=== PATIENT | female | born 1975 | race Two or more races ===

== ENCOUNTER 2021-04-01 18:27 | Emergency (ER) | payer OTHER, SELFPAY ==
[2021-04-01 18:29] VITALS: BP 90/57; PULSE 113; RESP 18; TEMP 36.6; O2SAT 95; BMI 30.2
--- NOTE | 2021-04-01 18:31 | ECG_ITS ---
Test Reason : DIZZINESS Blood Pressure : / mmHG Vent. Rate : 110 BPM Atrial Rate : 110 BPM P-R Int : 118 ms QRS Dur : 064 ms QT Int : 388 ms P-R-T Axes : 054 013 020 degrees QTc Int : 525 ms Sinus tachycardia Prolonged QT Abnormal ECG When compared with ECG of 01-JUL-2017 11:32, QT has lengthened Referred By: Sara Pope Electronically Signed By:Jay Treviño
[2021-04-01] MEDS: ondansetron HCL 4 MG/2 ML VIAL IVPUSH (18:45)
[2021-04-01 18:46] LABS: MANUAL DIFF FLAG NO
[2021-04-01] MEDS: 0.9 % Sodium Chloride 1,000 ML 999 ML IVCONT ×3 (18:47→19:30)
[2021-04-01 18:53] LABS: Glucose, Whole Blood 153 mg/dL (60-115)
[2021-04-01 18:57] LABS: Basophils Percent Auto 0.1 % (0-2); Eosinophils Absolute Auto 0.1 X10*3/uL (0.0-0.4); Eosinophils Percent Auto 0.7 % (0-4); Hematocrit 39.3 % (37-47); Hemoglobin 12.6 g/dl (12.0-16.0); Imm Gran Abs Auto 0.07 X10*3/uL (0.00-0.03); Imm Gran Pct Auto 0.6 % (0.0-0.4); Lymphocytes Absolute Auto 3.5 X10*3/uL (1.2-4.9); Lymphocytes Percent Auto 31.7 % (20-40); Mean Corpuscular HGB Conc 32.1 g/dl (31.0-35.0); Mean Corpuscular Volume 87.3 fL (80-98); Mean Platelet Volume 9.7 fL (9.4-12.3); Monocytes Absolute Auto 0.3 X10*3/uL (0.1-1.2); Monocytes Percent Auto 3.1 % (2-11); Neutrophils Percent Auto 63.8 % (45-73); Platelet Count 368 X10*3/uL (160-400); Red Cell Distribution Width 13.4 % (11.0-16.0); White Blood Count 10.9 X10*3/uL (4.8-10.8)
[2021-04-01 19:12] LABS: Ethanol < 10 mg/dL
[2021-04-01 19:14] LABS: Alanine Aminotransferase 10 U/L (0-31); Albumin Level 3.9 g/dL (3.5-5.0); Alkaline Phosphatase 90 U/L (39-117); Anion Gap 18 (12-20); Aspartate Amino Transferase 15 U/L (5-31); Bilirubin Direct < 0.2 mg/dL (0.0-0.5); Bilirubin Total 0.5 mg/dL (0.0-1.0); Blood Urea Nitrogen 11 mg/dL (9-16); Calcium 8.9 mg/dL (8.4-10.2); Carbon Dioxide 21 mmol/L (22-29); Chloride 104 mmol/L (96-108); Creatinine Clr Calc Pharmacy 54.6; Estimated Glomerular Filt Rate > 60; Glucose Random 183 mg/dL (60-115); Lipase 18 U/L (8-78); Potassium 3.5 mmol/L (3.3-5.1); Sodium 139 mmol/L (135-145); Total Protein 7.1 g/dL (6.5-8.0)
[2021-04-01 19:16] VITALS: BP 84/48; PULSE 107; RESP 18; O2SAT 100
[2021-04-01 19:20] LABS: Troponin-I High Sensitivity < 3.5 ng/L (<3.5-17.0)
--- NOTE | 2021-04-01 19:48 | ED.GENADULT ---
HPI - General Adult General Chief complaint: General Medical Stated complaint: hypotension, weakness, lethargy Time Seen by Provider: 04/01/21 18:31 Source: patient and EMS Mode of arrival: EMS Limitations: no limitations History of Present Illness HPI narrative: Patient comes emergency room complaining of a near syncopal episode today. Patient states she was feeling fine all day, took a hot shower, then patient started feeling weak, was able to sit on the toilet. Patient then stood up and started feeling dizzy and was able to lower herself to the ground. Patient denies loss of consciousness. EMS reports low blood pressure in the mid 80s. Patient states she has chronic low blood pressure and tachycardia. Related Data Previous Rx's Medication Instructions Recorded fluticasone propionate 50 2 spray INTRANASAL DAILY #16 g 01/11/21 mcg/actuation nasal spray,suspension zolpidem 10 mg tablet 10 mg PO BEDTIME PRN 30 Days #30 03/01/21 tab lorazepam 0.5 mg tablet 0.5 mg PO BID PRN 90 Days #180 tab 03/27/21 sertraline 25 mg tablet 25 mg PO DAILY #90 tab 03/27/21 Allergies Allergy/AdvReac Type Severity Reaction Status Date / Time milk [Milk] Allergy Intermediate THROAT Unverified 07/13/20 15:47 SWELLING latex [Latex] Allergy Mild RASH Unverified 07/13/20 15:47 oxycodone [From Percocet] Allergy Mild ANXIETY Unverified 07/13/20 15:47 acetaminophen [Percocet] Allergy Unknown Anxiety Verified 06/27/20 00:00 Motrin Allergy Unknown stomach Unverified 06/27/20 00:00 upset, nausea and vomiting naproxen [From NAPROSYN] Allergy Unknown NAUSEA & Unverified 07/13/20 15:47 VOMITING, rash ibuprofen [From Motrin] AdvReac Mild GASTRITIS Unverified 07/13/20 15:47 DAIRY PRODUCTS Allergy Intermediate THROAT Uncoded 07/13/20 15:47 CLOSING UP Latex Allergy Unknown Uncoded 06/27/20 00:00 Latex Gloves Allergy Unknown rash Uncoded 06/05/18 00:00 milk Allergy Unknown rash Uncoded 06/27/20 00:00 Review of Systems Review of Systems: Constitutional : No Weight loss, No Fever, No Chills, No Night Sweats, No Fatigue, No Malaise ENT/Mouth : No Hearing loss, No Ear Pain, No Nasal Congestion, No Sinus Pain, No Hoarseness, No sore throat, No Rhinorrhea, No Swallowing Difficulty Eyes: No Eye Pain, No Swelling, No Redness, No Foreign Body, No Discharge, No Vision Changes Cardiovascular : No Chest Pain, No SOB, No Dyspnea on Exertion, No Orthopnea, No Edema, No Palpitations Respiratory : No Cough, No Sputum, No Wheezing, No Smoke Exposure, No Dyspnea Gastrointestinal : No Nausea, No Vomiting, No Diarrhea, No Constipation, No abdominal Pain, No Hematochezia, No Melena Genitourinary : no irregular bleeding, No Dysuria, No Urinary Frequency, No Hematuria, No Urinary Incontinence, No Urgency, No Flank Pain, No Urinary Flow Changes, No Hesitancy Musculoskeletal : No joint pain, No Myalgias, No Joint Swelling Skin : No Skin Lesions, No rash Neuro : No Weakness, No Numbness, No Paresthesias, complaining of a near syncopal episode Psych : Complaining of feeling anxious, No Depression, No SI/HI/AH/VH, No Social Issues, Heme/Lymph: No Bruising, No Bleeding,No Lymphadenopathy Endocrine : No Polyuria, No Polydipsia, No Temperature Intolerance PMFSH Past Medical History Medical History Anxiety Cystocele Eosinophilic esophagitis GERD (gastroesophageal reflux disease) Gestational diabetes Iron deficiency anemia Osteomyelitis of right foot Osteoporosis Overactive bladder Renal calculi Right foot ulcer Spina bifida Uterine prolapse Vitamin D deficiency Social History Social History Alcohol intake: current Alcohol intake frequency: a few times a month Alcohol type: wine Patient Tobacco Use Status: Never used Tobacco Smoked in Last 30 Days: No Substance Use Type: Marijuana Substance Use Frequency: Monthly Last Used Substance: Weeks (ago) Advance Directives: No Advance Directives Information Provided: No Patient : No Physical Exam Vital Signs: Vital Signs: Last Vital Signs Temp 97.8 F 04/01/21 18:29 Pulse 108 H 04/01/21 21:15 Resp 17 04/01/21 21:06 BP 108/66 04/01/21 21:15 Pulse Ox 97 04/01/21 21:06 Body Mass Index 30.2 Appearance: Alert. Oriented X3. No acute distress. Eyes: Pupils equal, round and reactive to light. ENT: Pharynx normal. Neck: Normal inspection. Neck supple. No lymph nodes noted. No crepitus CVS: Normal heart rate and rhythm. Pulses normal. Normal S1 and S2 Respiratory: No respiratory distress. Breath sounds normal. No Wheezing. No rales Abdomen: Soft and nontender. No rigidity. No distention. good BS x4 Skin: Skin warm and dry. Normal skin color. Normal skin turgor. Extremities: No lower extremity edema. Mildly at trophic bilateral legs due to spina bifida Neuro: Oriented X 3. No motor deficit. No sensory deficit. Moving all extermities. No slurred speech. Course Course Course Narrative: Patient received 3 L of normal saline, patient's blood pressure now improved to 120 systolic. Patient's orthostatics were positive after 3 L of normal saline but patient was asymptomatic. Patient feels better, a bit nauseous but overall has no dizziness, no lightheaded sensation, no chest pain or shortness of breath. Patient likely had a vasovagal event from taking a hot shower when standing up quickly. Medical Decision Making Lab Data Result diagrams: 04/01/21 18:42 04/01/21 18:42 Labs: Lab Results 04/01/21 04/01/21 04/01/21 Range/Units 18:42 18:42 18:42 WBC 10.9 H (4.8-10.8) X10*3/uL RBC 4.50 (4.20-5.50) X10*6/uL Hgb 12.6 (12.0-16.0) g/dl Hct 39.3 (37-47) % MCV 87.3 (80-98) fL MCH 28.0 (27.0-33.0) pg MCHC 32.1 (31.0-35.0) g/dl RDW 13.4 (11.0-16.0) % Plt Count 368 (160-400) X10*3/uL MPV 9.7 (9.4-12.3) fL Immature Gran % (Auto) 0.6 H (0.0-0.4) % Neut % (Auto) 63.8 (45-73) % Lymph % (Auto) 31.7 (20-40) % [place] % (Auto) 3.1 (2-11) % Eos % (Auto) 0.7 (0-4) % Baso % (Auto) 0.1 (0-2) % Lymph # (Auto) 3.5 (1.2-4.9) X10*3/uL [place] # (Auto) 0.3 (0.1-1.2) X10*3/uL Eos # (Auto) 0.1 (0.0-0.4) X10*3/uL Baso # (Auto) 0.0 (0.0-0.2) X10*3/uL Abs Immat Gran (auto) 0.07 H (0.00-0.03) X10*3/uL Absolute Neuts (auto) 7.0 (2.0-8.3) X10*3/uL Absolute Nucleated RBC 0.000 (0.0-0.012) X10*3/uL Nucleated RBC % (auto) 0.0 (0.0-0.2) /100WBC Sodium Cancelled Potassium Cancelled Chloride Cancelled Carbon Dioxide Cancelled Anion Gap Cancelled BUN Cancelled Creatinine Cancelled Estim Creat Clear Calc Cancelled Estimated GFR Cancelled POC Glucose (60-115) mg/dL Random Glucose Cancelled Calcium Cancelled Total Bilirubin Cancelled Direct Bilirubin Cancelled AST Cancelled ALT Cancelled Alkaline Phosphatase Cancelled Troponin I High Sens < 3.5 (<3.5-17.0) ng/L Total Protein Cancelled Albumin Cancelled Lipase (8-78) U/L Urine Color Urine Appearance Urine pH (5.0-8.0) Ur Specific [place] (1.005-1.025) Urine Protein (NEG-TRACE) MG/DL Urine Glucose (UA) (NEG) MG/DL Urine Ketones (NEG) MG/DL Urine Blood (NEG) Urine Nitrite (NEG) Ur Leukocyte Esterase (NEG) Urine RBC (0) /HPF Urine WBC (0-4) /HPF Ur Squamous Epith Cells /LPF Urine Bacteria /LPF Urine Test (NEGATIVE) Urine Opiates Screen (Not Detect) Ur Barbiturates Screen (Not Detect) Ur Phencyclidine Scrn (Not Detect) Ur Amphetamines Screen (Not Detect) U Benzodiazepines Scrn (Not Detect) Urine Cocaine Screen (Not Detect) U Marijuana (THC) Screen (Not Detect) Ethyl Alcohol mg/dL 04/01/21 04/01/21 04/01/21 Range/Units 18:42 18:42 18:48 WBC (4.8-10.8) X10*3/uL RBC (4.20-5.50) X10*6/uL Hgb (12.0-16.0) g/dl Hct (37-47) % MCV (80-98) fL MCH (27.0-33.0) pg MCHC (31.0-35.0) g/dl RDW (11.0-16.0) % Plt Count (160-400) X10*3/uL MPV (9.4-12.3) fL Immature Gran % (Auto) (0.0-0.4) % Neut % (Auto) (45-73) % Lymph % (Auto) (20-40) % [place] % (Auto) (2-11) % Eos % (Auto) (0-4) % Baso % (Auto) (0-2) % Lymph # (Auto) (1.2-4.9) X10*3/uL [place] # (Auto) (0.1-1.2) X10*3/uL Eos # (Auto) (0.0-0.4) X10*3/uL Baso # (Auto) (0.0-0.2) X10*3/uL Abs Immat Gran (auto) (0.00-0.03) X10*3/uL Absolute Neuts (auto) (2.0-8.3) X10*3/uL Absolute Nucleated RBC (0.0-0.012) X10*3/uL Nucleated RBC % (auto) (0.0-0.2) /100WBC Sodium 139 Potassium 3.5 Chloride 104 Carbon Dioxide 21 L Anion Gap 18 BUN 11 Creatinine 0.97 Estim Creat Clear Calc 54.6 Estimated GFR > 60 POC Glucose 153 H (60-115) mg/dL Random Glucose 183 H Calcium 8.9 Total Bilirubin 0.5 Direct Bilirubin < 0.2 AST 15 ALT 10 Alkaline Phosphatase 90 Troponin I High Sens (<3.5-17.0) ng/L Total Protein 7.1 Albumin 3.9 Lipase 18 (8-78) U/L Urine Color Urine Appearance Urine pH (5.0-8.0) Ur Specific [place] (1.005-1.025) Urine Protein (NEG-TRACE) MG/DL Urine Glucose (UA) (NEG) MG/DL Urine Ketones (NEG) MG/DL Urine Blood (NEG) Urine Nitrite (NEG) Ur Leukocyte Esterase (NEG) Urine RBC (0) /HPF Urine WBC (0-4) /HPF Ur Squamous Epith Cells /LPF Urine Bacteria /LPF Urine Test (NEGATIVE) Urine Opiates Screen (Not Detect) Ur Barbiturates Screen (Not Detect) Ur Phencyclidine Scrn (Not Detect) Ur Amphetamines Screen (Not Detect) U Benzodiazepines Scrn (Not Detect) Urine Cocaine Screen (Not Detect) U Marijuana (THC) Screen (Not Detect) Ethyl Alcohol < 10 mg/dL 04/01/21 04/01/21 04/01/21 Range/Units 21:00 21:00 21:00 WBC (4.8-10.8) X10*3/uL RBC (4.20-5.50) X10*6/uL Hgb (12.0-16.0) g/dl Hct (37-47) % MCV (80-98) fL MCH (27.0-33.0) pg MCHC (31.0-35.0) g/dl RDW (11.0-16.0) % Plt Count (160-400) X10*3/uL MPV (9.4-12.3) fL Immature Gran % (Auto) (0.0-0.4) % Neut % (Auto) (45-73) % Lymph % (Auto) (20-40) % [place] % (Auto) (2-11) % Eos % (Auto) (0-4) % Baso % (Auto) (0-2) % Lymph # (Auto) (1.2-4.9) X10*3/uL [place] # (Auto) (0.1-1.2) X10*3/uL Eos # (Auto) (0.0-0.4) X10*3/uL Baso # (Auto) (0.0-0.2) X10*3/uL Abs Immat Gran (auto) (0.00-0.03) X10*3/uL Absolute Neuts (auto) (2.0-8.3) X10*3/uL Absolute Nucleated RBC (0.0-0.012) X10*3/uL Nucleated RBC % (auto) (0.0-0.2) /100WBC Sodium Potassium Chloride Carbon Dioxide Anion Gap BUN Creatinine Estim Creat Clear Calc Estimated GFR POC Glucose (60-115) mg/dL Random Glucose Calcium Total Bilirubin Direct Bilirubin AST ALT Alkaline Phosphatase Troponin I High Sens (<3.5-17.0) ng/L Total Protein Albumin Lipase (8-78) U/L Urine Color YELLOW Urine Appearance HAZY Urine pH 6.0 (5.0-8.0) Ur Specific [place] 1.010 (1.005-1.025) Urine Protein NEG (NEG-TRACE) MG/DL Urine Glucose (UA) NEG (NEG) MG/DL Urine Ketones NEG (NEG) MG/DL Urine Blood NEG (NEG) Urine Nitrite NEG (NEG) Ur Leukocyte Esterase TRACE H (NEG) Urine RBC 0 (0) /HPF Urine WBC 0-2 (0-4) /HPF Ur Squamous Epith Cells 2+ /LPF Urine Bacteria 2+ /LPF Urine Test NEGATIVE (NEGATIVE) Urine Opiates Screen Not Detected (Not Detect) Ur Barbiturates Screen Not Detected (Not Detect) Ur Phencyclidine Scrn Not Detected (Not Detect) Ur Amphetamines Screen Not Detected (Not Detect) U Benzodiazepines Scrn Not Detected (Not Detect) Urine Cocaine Screen Not Detected (Not Detect) U Marijuana (THC) Screen Not Detected (Not Detect) Ethyl Alcohol mg/dL ECG Data Attestation: I personally reviewed and interpreted this ECG as follows: (Sinus tachycardia, no ST segment depression or elevation, no T-wave inversion, prolonged QTC 525) Discharge Plan Discharge Clinical Impression: Vasovagal near-syncope Patient Disposition: Home, Self-Care Instructions: Near Syncope (ED) Additional Instructions: Please follow-up with your primary care physician tomorrow. If you have any worsening or new symptoms, please return to the emergency room or call 911 Prescriptions: No Action fluticasone propionate [Flonase Allergy Relief] 50 mcg/actuation spray,suspension 2 spray intranasal DAILY Qty: 16 RF: 3 zolpidem 10 mg tablet 10 mg PO BEDTIME PRN (Reason: insomnia) 30 Days Qty: 30 RF: 2 lorazepam 0.5 mg tablet 0.5 mg PO BID PRN (Reason: anxiety) 90 Days Qty: 180 RF: 1 sertraline 25 mg tablet 25 mg PO DAILY Qty: 90 RF: 3 Interventions: ED Discharge Assessment Last Done: 04/01/21 21:47 Discharge Date/Time: 04/01/21 21:47
--- NOTE | 2021-04-01 19:50 | PC.NURSE ---
per , pt to get 3 l ns. 2nd and 3rd L hung
[2021-04-01 21:06] VITALS: BP 118/85; PULSE 101; RESP 17; O2SAT 97
[2021-04-01 21:09] LABS: Glucose Urine UA NEG (NEG); Leukocyte Esterase Urine TRACE (NEG); Nitrite Urine NEG (NEG); UACC Culture Trigger YES; Urine Blood NEG (NEG); Urine Ketones NEG (NEG); Urine Protein NEG (NEG-TRACE)
[2021-04-01 21:11] LABS: Appearance Urine HAZY; Color Urine YELLOW; UPreg QC Valid YES; Urine Pregnancy NEGATIVE (NEGATIVE)
[2021-04-01 21:13] VITALS: BP 124/81; PULSE 99
[2021-04-01 21:14] VITALS: BP 128/81; PULSE 105
[2021-04-01 21:15] VITALS: BP 108/66; PULSE 108
[2021-04-01 21:23] LABS: WBC Urine 0-2 /HPF (0-4)
[2021-04-01 21:24] LABS: Bacteria Urine 2+ /LPF; RBC Urine 0 /HPF (0); Squamous Epithelial Cell Urine 2+ /LPF
[2021-04-01 21:32] LABS: Amphetamine Screen Urine Not Detected (Not Detect); Barbiturates, Urine Not Detected (Not Detect); Benzodiazepines Screen Urine Not Detected (Not Detect); Cannabinoid Screen Urine Not Detected (Not Detect); Cocaine Screen Urine Not Detected (Not Detect); Opiate Screen Urine Not Detected (Not Detect); Phencyclidine Screen Urine Not Detected (Not Detect)
[2021-04-01] MEDS: Prochlorperazine Edisylate 10 MG/2 ML VIAL IVPUSH (21:37)
== END 2021-04-01 21:47 | disposition home or self-care (01) ==
PROVIDERS: Emergency Provider Emergency Medicine
DX: R55 Syncope and collapse (principal); R73.9 Hyperglycemia, unspecified; N39.0 Urinary tract infection, site not specified; R00.0 Tachycardia, unspecified; D50.9 Iron deficiency anemia, unspecified; Q05.9 Spina bifida, unspecified; K21.9 Gastro-esophageal reflux disease without esophagitis; F12.90 Cannabis use, unspecified, uncomplicated; Z79.899 Other long term (current) drug therapy
CPT/HCPCS: 36415; 80048; 80076; 80307; 81001; 81003; 81025; 82077; 82947; 83690; 84484; 85025; 87086; 87088; 87186; 93005; 96361; 96374; 96375; 99284; 99285; J2405

== ENCOUNTER → 2021-10-02 09:43 | Outpatient (BNVA) | payer OTHER, SELFPAY | PROVIDERS: PCP Internal Medicine; Referring Provider Internal Medicine; Visit Provider Internal Medicine | DX: R00.2 Palpitations (principal); R00.0 Tachycardia, unspecified; R55 Syncope and collapse | CPT/HCPCS: 93005; 99202 ==

== ENCOUNTER 2021-10-31 08:43 | Outpatient (REF) | payer OTHER, SELFPAY ==
[2021-10-31 10:10] LABS: Binax Internal Control QC Valid; Binax Lot number: 9864; Binax Now Covid-19 Ag Negative (Negative)
== END 2021-10-31 08:44 | disposition home or self-care (01) ==
LOC: HO.LAB 08:43
PROVIDERS: Visit Provider Internal Medicine
DX: Z20.822 Contact with and (suspected) exposure to COVID-19 (principal)
CPT/HCPCS: 36415; C9803

== ENCOUNTER 2021-11-19 08:43 | Outpatient (REF) | payer OTHER, SELFPAY ==
[2021-11-19 10:18] LABS: Binax Internal Control QC Valid; Binax Now Covid-19 Ag Positive (Negative)
== END 2021-11-19 08:44 | disposition home or self-care (01) ==
LOC: HO.LAB 08:43
PROVIDERS: Visit Provider Internal Medicine
DX: Z20.822 Contact with and (suspected) exposure to COVID-19 (principal)
CPT/HCPCS: C9803

== ENCOUNTER 2022-05-12 08:21 | Emergency (ER) | payer OTHER, SELFPAY ==
--- NOTE | 2022-05-12 | ECG_ITS ---
Test Reason : chest tighness Blood Pressure : / mmHG Vent. Rate : 089 BPM Atrial Rate : 089 BPM P-R Int : 130 ms QRS Dur : 070 ms QT Int : 390 ms P-R-T Axes : 052 -08 021 degrees QTc Int : 474 ms Normal sinus rhythm Normal ECG When compared with ECG of 01-APR-2021 18:51, QT has shortened Referred By: Generic ED Physician Electronically Signed By:Jay Treviño
--- NOTE | ~2022-05-12 | XR_ITS ---
EXAMINATION: XR CHEST CLINICAL INFORMATION: Chest pain with palpitations COMPARISON: 02/11/2017 TECHNIQUE: Frontal view of the chest was obtained. FINDINGS: Mild right medial basilar opacity may represent a small area of atelectasis or infiltrate. The hilar structures do not appear pathologically enlarged. No failure. Cardiac silhouette within normal limits There is no effusion. XR/XR chest 1V IMPRESSION: Findings may suggest small right medial basilar atelectasis or infiltrate
[2022-05-12 08:26] VITALS: BP 150/110; PULSE 101; O2SAT 100
[2022-05-12 08:54] VITALS: BP 145/89; PULSE 98; RESP 18; TEMP 37; O2SAT 98; BMI 28.1
--- NOTE | 2022-05-12 12:32 | ED.GENADULT ---
HPI - General Adult General Chief complaint: Anxiety Stated complaint: CHEST DISCOMFORT W/ANXIETY SINCE 6AM PER EMS Time Seen by Provider: 05/12/22 12:15 Source: patient Mode of arrival: ambulatory Limitations: no limitations History of Present Illness HPI narrative: 46-year-old female history spina bifida and anxiety presents to ED for chest pain /palpitations. States around 5:00am in the bathroom and while go back to bed she felt some chest tightness and palpitation with headache. Patient states history of anxiety and this episode was slightly similar but different due to the constant palpitations. Patient denies any pleurisy, leg swelling, calf pain, coughing up blood, recent long travel, recent surgery, control pills or any recent trauma. He came to ED to evaluate to make sure nothing wrong with her. Related Data Previous Rx's Medication Instructions Recorded fluticasone propionate 50 2 spray intranasal DAILY #16 grams 09/27/21 mcg/actuation nasal spray,suspension (Flonase Allergy Relief) sertraline 25 mg tablet 25 mg PO DAILY #90 tabs 12/21/21 lorazepam 0.5 mg tablet 0.5 mg PO BID PRN anxiety 90 days 03/29/22 #180 tabs zolpidem 10 mg tablet 10 mg PO BEDTIME PRN insomnia 30 04/26/22 days #30 tabs amoxicillin 500 mg capsule 1,000 mg PO Q12H 5 days #20 caps 05/12/22 azithromycin 250 mg tablet See Rx Instructions PO .COMPLEX #6 05/12/22 tabs Allergies Allergy/AdvReac Type Severity Reaction Status Date / Time milk [Milk] Allergy Intermediate THROAT Verified 03/29/22 14:43 SWELLING latex [Latex] Allergy Mild RASH Verified 03/29/22 14:43 oxycodone [From Percocet] Allergy Mild ANXIETY Verified 03/29/22 14:43 naproxen [From NAPROSYN] Allergy Unknown NAUSEA & Verified 03/29/22 14:43 VOMITING, rash ibuprofen [From Motrin] AdvReac Mild GASTRITIS Verified 03/29/22 14:43 DAIRY PRODUCTS Allergy Intermediate THROAT Uncoded 03/29/22 14:43 CLOSING UP Review of Systems Review of Systems: resolved chest pain. palpitations Yes all other systems are reviewed and are negative FORMERLY [facility], [facility] Past Medical History Medical History (Updated 05/12/22 @ 14:25 by JOSSUE Salas) Anxiety Cystocele Eosinophilic esophagitis GERD (gastroesophageal reflux disease) Gestational diabetes Iron deficiency anemia Osteomyelitis of right foot Osteoporosis Overactive bladder Renal calculi Right foot ulcer Spina bifida Uterine prolapse Vitamin D deficiency Surgical History History of back surgery History of surgery History of tubal ligation Family History Family History Mother Diabetes High blood pressure Stroke Father High cholesterol Stroke Other Mental health disorder Social History Social History Housing: Apartment Alcohol intake: current Alcohol intake frequency: does not drink Alcohol type: wine Patient Tobacco Use Status: Never used Tobacco Smoked in Last 30 Days: No e-Cigarette/Vaping Use: Never Used Second Hand Smoke Exposure: No Use of substances other than those prescribed or required for medical reasons: No Substance Use Type: Marijuana Advance Directives: No Advance Directives Information Provided: Yes service: No Current occupational status: disabled Cognitive needs: No Hearing needs: No Vision needs: No Physical Exam ED Vital Signs: Vital Signs - 24 hr 05/12/22 08:54 05/12/22 12:49 Temperature 98.6 F 98.1 F Pulse Rate 98 78 Respiratory Rate 18 14 Blood Pressure 145/89 H 133/81 Pulse Oximetry 98 100 Oxygen Delivery Method Room Air Room Air BMI result Body Mass Index 28.1 Const General: cooperative, healthy appearing, comfortable, no acute distress, well developed, alert, awake and Physically active Orientation/consciousness: oriented to time and patient oriented x3 [facility] Head: Yes normal to inspection, Yes No palpable skull fracture present, Yes normocephalic and Yes atraumatic Eyes General: appearance normal, both eyes and all related structures Neck Neck: Yes normal visual inspection, Yes full ROM, Yes no lymphadenopathy, Yes no meningeal signs, Yes trachea midline, Yes supple, No anterior neck swelling and No tender Chest Chest palpation & inspection: normal inspection of the chest and normal palpation of entire chest wall Resp Effort & Inspection: normal respiratory effort and able to speak in complete sentences Auscultation: clear to auscultation bilaterally Cardio Jugular venous distension: no JVD Heart sounds: S1 normal heart sound present and S2 normal heart sound present GI Inspection: Yes normal to inspection and No abdominal wall ecchymosis Palpation (GI): Soft to palpation, not firm, nontender, no guarding and not rigid General: No CVA tenderness and Yes no CVA tenderness Back/Spine/Pelvis Back: no CVA tenderness, No CVA tenderness and No back tenderness Skin General skin exam: no rashes or lesions noted and elasticity normal Neuro General: oriented to time, patient oriented x3, gait normal, no meningeal signs and CN's II-XI intact bilaterally Extrem Other: Lower extremities negative for swelling, pain edema, or calf tenderness General: Yes normal to inspection and Yes full ROM Psych Appearance: grossly normal, well kempt and not disheveled Course Course Course Narrative: due to age will do cardiac evaluation. Due to patient staying palpitations although no chest pain and more comfortable most likely due to anxiety will do a D-dimer and thyroid level. EKG negative STEMI chest x-ray COVID swab ordered Reevaluation(s) Reevaluation #1: Patient's EKG negative STEMI. Troponin negative after having symptoms since 05:00 o'clock am . patient presently asymptomatic in the bed. D-dimer negative PERC score 0. Patient's heart score 0. chest x-ray shows possible right-sided infiltrate. Patient no having any URI symptoms but due to this reading will discharge with antiobitcs for atypical pnumonia. [facility] Time: 14:13 Medical Decision Making [facility] Narrative Medical decision making narrative: Atypical pneumonia. atypical chest pain Lab Data Result diagrams: 05/12/22 12:55 05/12/22 12:55 Labs: Lab Results 05/12/22 05/12/22 05/12/22 Range/Units 12:52 12:55 12:55 WBC 9.7 (4.8-10.8) X10*3/uL RBC 4.58 (4.20-5.50) X10*6/uL Hgb 13.2 (12.0-16.0) g/dl Hct 39.8 (37.0-47.0) % MCV 86.9 (80.0-98.0) fL MCH 28.8 (27.0-33.0) pg MCHC 33.2 (31.0-35.0) g/dl RDW 13.1 (11.0-16.0) % Plt Count 348 (160-400) X10*3/uL MPV 10.2 (9.4-12.3) fL Immature Gran % (Auto) 0.4 (0.0-0.4) % Neut % (Auto) 76.8 H (45-73) % Lymph % (Auto) 17.7 L (20-40) % [place] % (Auto) 4.2 (2-11) % Eos % (Auto) 0.6 (0-4) % Baso % (Auto) 0.3 (0-2) % Lymph # (Auto) 1.7 (1.2-4.9) X10*3/uL [place] # (Auto) 0.4 (0.1-1.2) X10*3/uL Eos # (Auto) 0.1 (0.0-0.4) X10*3/uL Baso # (Auto) 0.0 (0.0-0.2) X10*3/uL Abs Immat Gran (auto) 0.04 H (0.00-0.03) X10*3/uL Absolute Neuts (auto) 7.4 (2.0-8.3) x10*3/uL Absolute Nucleated RBC 0.000 (0.0-0.012) X10*3/uL Nucleated RBC % (auto) 0.0 (0.0-0.2) /100WBC PT (10.0-13.1) SEC INR (0.9-1.1) APTT (24.1-38.0) SEC D-Dimer High Sensitivty NG/ML Sodium 136 (135-145) mmol/L Potassium 4.4 D (3.3-5.1) mmol/L Chloride 106 (96-108) mmol/L Carbon Dioxide 20 L (22-29) mmol/L Anion Gap 14 (12-20) BUN 8 L (9-16) mg/dL Creatinine 0.79 (0.5-1.4) mg/dL Estim Creat Clear Calc 67.0 Estimated GFR > 60 Random Glucose 109 (60-115) mg/dL Calcium 8.8 (8.4-10.2) mg/dL Total Bilirubin 0.3 (0.0-1.0) mg/dL AST 38 H D (5-31) U/L ALT 24 (0-31) U/L Alkaline Phosphatase 84 (39-117) U/L Troponin I High Sens (<3.5-17.0) ng/L B-Natriuretic Peptide (<100) pg/mL Total Protein 7.5 (6.5-8.0) g/dL Albumin 4.2 (3.5-5.0) g/dL TSH 1.74 (0.32-4.0) uIU/mL COVID-19 (SAMARIA) Negative (Negative) COVID-19 Clin Com See Note 05/12/22 05/12/22 Range/Units 12:55 12:55 WBC (4.8-10.8) X10*3/uL RBC (4.20-5.50) X10*6/uL Hgb (12.0-16.0) g/dl Hct (37.0-47.0) % MCV (80.0-98.0) fL MCH (27.0-33.0) pg MCHC (31.0-35.0) g/dl RDW (11.0-16.0) % Plt Count (160-400) X10*3/uL MPV (9.4-12.3) fL Immature Gran % (Auto) (0.0-0.4) % Neut % (Auto) (45-73) % Lymph % (Auto) (20-40) % [place] % (Auto) (2-11) % Eos % (Auto) (0-4) % Baso % (Auto) (0-2) % Lymph # (Auto) (1.2-4.9) X10*3/uL [place] # (Auto) (0.1-1.2) X10*3/uL Eos # (Auto) (0.0-0.4) X10*3/uL Baso # (Auto) (0.0-0.2) X10*3/uL Abs Immat Gran (auto) (0.00-0.03) X10*3/uL Absolute Neuts (auto) (2.0-8.3) x10*3/uL Absolute Nucleated RBC (0.0-0.012) X10*3/uL Nucleated RBC % (auto) (0.0-0.2) /100WBC PT 12.3 (10.0-13.1) SEC INR 1.1 (0.9-1.1) APTT 36.7 (24.1-38.0) SEC D-Dimer High Sensitivty < 150 NG/ML Sodium (135-145) mmol/L Potassium (3.3-5.1) mmol/L Chloride (96-108) mmol/L Carbon Dioxide (22-29) mmol/L Anion Gap (12-20) BUN (9-16) mg/dL Creatinine (0.5-1.4) mg/dL Estim Creat Clear Calc Estimated GFR Random Glucose (60-115) mg/dL Calcium (8.4-10.2) mg/dL Total Bilirubin (0.0-1.0) mg/dL AST (5-31) U/L ALT (0-31) U/L Alkaline Phosphatase (39-117) U/L Troponin I High Sens < 3.5 (<3.5-17.0) ng/L B-Natriuretic Peptide < 10 (<100) pg/mL Total Protein (6.5-8.0) g/dL Albumin (3.5-5.0) g/dL TSH (0.32-4.0) uIU/mL COVID-19 (SAMARIA) (Negative) COVID-19 Clin Com ECG Data Interpretation: normal sinus rhythm. Ventricular rate 94. Pr interval 164. QRS 84 pr QTC 467. Negative STEMI Discharge Plan Discharge Clinical Impression: Chest pain, Atypical pneumonia Patient Disposition: Home, Self-Care Instructions: Chest Pain (ED), Community Acquired Pneumonia (ED) Additional Instructions: the EKG and blood work came back normal and negative for heart attack or risk of blood clot. Your thyroid level normal. COVID swab is negative. Chest x-ray shows possible right pneumonia and will be discharged with antibiotics. Please follow-up with your primary care provider. Return to the ED immediately for worsening chest pain, shortness of breath, leg swelling, calf pain, coughing up blood, tractable fever, chills, pain on inspiration, or any other concerning symptoms. Please follow up with PCP Prescriptions: New azithromycin 250 mg tablet See Rx Instructions .ROUTE .COMPLEX Qty: 6 0RF Rx Instructions: For 250 mg dose pack: take 500 mg today (day 1), then 250 mg for 4 days (days 2-5) amoxicillin 500 mg capsule 1,000 mg PO Q12H 5 Days Qty: 20 0RF No Action fluticasone propionate [Flonase Allergy Relief] 50 mcg/actuation spray,suspension 2 spray intranasal DAILY Qty: 16 5RF Rx Instructions: administer into each nostril sertraline 25 mg tablet 25 mg PO DAILY Qty: 90 3RF zolpidem 10 mg tablet 10 mg PO BEDTIME PRN (Reason: insomnia) 30 Days Qty: 30 3RF lorazepam 0.5 mg tablet 0.5 mg PO BID PRN (Reason: anxiety) 90 Days Qty: 180 1RF Stand Alone Forms: Work/School Release Interventions: ED Discharge Assessment Last Done: 05/12/22 14:54 Discharge Date/Time: 05/12/22 14:55 Print Language: [place]ian
[2022-05-12 12:49] VITALS: BP 133/81; PULSE 78; RESP 14; TEMP 36.7; O2SAT 100
[2022-05-12 12:59] LABS: MANUAL DIFF FLAG NO
[2022-05-12 13:15] LABS: COVID-19 Test Negative (Negative)
[2022-05-12 13:16] LABS: Basophils Percent Auto 0.3 % (0-2); Eosinophils Absolute Auto 0.1 X10*3/uL (0.0-0.4); Eosinophils Percent Auto 0.6 % (0-4); Hematocrit 39.8 % (37.0-47.0); Hemoglobin 13.2 g/dl (12.0-16.0); Imm Gran Abs Auto 0.04 X10*3/uL (0.00-0.03); Imm Gran Pct Auto 0.4 % (0.0-0.4); Lymphocytes Absolute Auto 1.7 X10*3/uL (1.2-4.9); Lymphocytes Percent Auto 17.7 % (20-40); Mean Corpuscular HGB Conc 33.2 g/dl (31.0-35.0); Mean Corpuscular Hemoglobin 28.8 pg (27.0-33.0); Mean Corpuscular Volume 86.9 fL (80.0-98.0); Mean Platelet Volume 10.2 fL (9.4-12.3); Monocytes Absolute Auto 0.4 X10*3/uL (0.1-1.2); Monocytes Percent Auto 4.2 % (2-11); Neutrophils Absolute Auto 7.4 x10*3/uL (2.0-8.3); Neutrophils Percent Auto 76.8 % (45-73); Platelet Count 348 X10*3/uL (160-400); Red Blood Count 4.58 X10*6/uL (4.20-5.50); Red Cell Distribution Width 13.1 % (11.0-16.0); White Blood Count 9.7 X10*3/uL (4.8-10.8)
[2022-05-12 13:19] LABS: B Type Natriuretic Peptide < 10 pg/mL (<100); Troponin-I High Sensitivity < 3.5 ng/L (<3.5-17.0)
[2022-05-12 13:26] LABS: INTERNATIONAL NORM RATIO 1.1 (0.9-1.1); Prothrombin Time 12.3 SEC (10.0-13.1)
[2022-05-12 13:29] LABS: Partial Thromboplastin Time 36.7 SEC (24.1-38.0)
[2022-05-12 13:31] LABS: D Dimer High Sensitivity < 150 NG/ML
[2022-05-12 13:43] LABS: TSH reflex Free T4 1.74 uIU/mL (0.32-4.0)
[2022-05-12 13:49] LABS: Alanine Aminotransferase 24 U/L (0-31); Albumin Level 4.2 g/dL (3.5-5.0); Alkaline Phosphatase 84 U/L (39-117); Anion Gap 14 (12-20); Aspartate Amino Transferase 38 U/L (5-31); Bilirubin Total 0.3 mg/dL (0.0-1.0); Blood Urea Nitrogen 8 mg/dL (9-16); Calcium 8.8 mg/dL (8.4-10.2); Carbon Dioxide 20 mmol/L (22-29); Chloride 106 mmol/L (96-108); Estimated Glomerular Filt Rate > 60; Glucose Random 109 mg/dL (60-115); Potassium 4.4 mmol/L (3.3-5.1); Sodium 136 mmol/L (135-145); Total Protein 7.5 g/dL (6.5-8.0)
[2022-05-12] MEDS: LORazepam 0.5 MG TABLET PO (14:54)
== END 2022-05-12 14:55 | disposition home or self-care (01) ==
PROVIDERS: Physician Assistant; Emergency Provider Emergency Medicine; PCP Internal Medicine
DX: J18.9 Pneumonia, unspecified organism (principal); R07.89 Other chest pain; R00.2 Palpitations; R06.02 Shortness of breath; Z20.822 Contact with and (suspected) exposure to COVID-19; Z79.899 Other long term (current) drug therapy
CPT/HCPCS: 36415; 71045; 80053; 83880; 84443; 84484; 85025; 85379; 85610; 85730; 87635; 93005; 96372; 99284

== ENCOUNTER → 2022-07-24 10:07 | Outpatient (REF) | payer OTHER, SELFPAY ==
--- NOTE | 2022-07-24 10:09 | ECG_ITS ---
Hook-up date: 2022-07-24 10:31:00 Duration: 25:51:00 Test Indications: PALPITATIONS Medications: [id number] QRS complexes 1 Ventricular ectopics which represent <1 % of total QRS comp. * Supraventricular ectopics which represent % of total QRS comp. * Paced QRS complexs which represent % of total QRS comp. VENTRICULAR ECTOPY 1 Isolated 0 Bigeminal Cycles 0 Couplets 0 Runs 0 Beats in Runs * Beats LONGEST at * BPM at :: -- * Beats FASTEST at * BPM at :: -- SUPRAVENTRICULAR ECTOPY * Isolated * Couplets * Runs * Beats in Runs * Beats LONGEST at * BPM at :: -- * Beats FASTEST at * BPM at :: -- HEART RATES 59 MIN at 06:42:31 2022-07-25 94 AVG 172 MAX at 12:20:19 2022-07-24 LONGEST RR 1.1520 secs at 06:40:41 2022-07-25 S-T LEVELS Channel 1 - 128 mm at 10:31:00 2022-07-24 - 128 mm at 10:31:00 2022-07-24 Channel 2 - 128 mm at 10:31:00 2022-07-24 - 128 mm at 10:31:00 2022-07-24 Channel 3 - 128 mm at 02:95:01 -- - 128 mm at 02:95:01 Underlying rhythm is sinus; Average ventricular rate 94/min; range 59-172/min; About 37% of the time, rate >100/min; sinus tachycardia; no other arrhythmias; No significant ectopy; Patient did not report any symptoms in the diary Referred By: Miguel Castillo Overread By: NAPOLEON DURHAM
--- NOTE | 2022-07-24 10:09 | CA_ITS ---
Transthoracic Echocardiogram Patient (Last, First, Middle): Lilibeth Hollis, Gender: Female Date of : 1975 Age: 46 Procedure Date: 07/24/2022 Procedure Type: Transthoracic Echocardiogram Location: OP Height: 144.78 cm Weight: 58.97 kg BSA: 1.50 m2 Heart Rate: 93 bpm BP: 130 / 80 mmHg Milling Supervisor: VON Padilla MD: Miguel Castillo MD Wire Hanger: Omkar Mcmahon MD Symptoms: R00.2 - Palpitations Study Quality: Adequate ECG Rhythm: Sinus Conclusions: - 1. Normal LV systolic function with impaired relaxation filling pattern 2. Normal cardiac valvular Doppler 3. Normal RV systolic pressure 4. No gross pericardial effusion Findings Left Ventricle Normal left ventricular size, thickness, and systolic function. The visually estimated ejection fraction is between 55-60%. Spectral Doppler is indicative of an impaired relaxation filling pattern. E/E prime ratio is between 8 and 15 consistent with indeterminate filling pressures. Right Ventricle Normal right ventricular cavity size and systolic function. Atria Both atria are normal in size. Interatrial shunt cannot be excluded. Aortic Valve The aortic valve structure and function is likely normal. There is no aortic valve stenosis. There is no aortic valve regurgitation. Mitral Valve Normal mitral valve structure and function. There is trace mitral valve regurgitation. There is no mitral valve stenosis. Pulmonic Valve The pulmonic valve was not well visualized. Tricuspid Valve Normal tricuspid valve structure. There is trace tricuspid valve regurgitation. The right ventricular systolic pressure is normal. The right ventricular systolic pressure is 17 mmHg. Normal right atrial pressure. There is no evidence of pulmonary hypertension. Great Vessels All visible segments of the aorta are normal in size. The pulmonary artery was not well visualized. Venous The inferior vena cava is normal in size and collapses greater than 50% with inspiration. Pericardium/Pleural There is no evidence of pericardial effusion. Prior Study Comparison No prior study available for comparison. Measurements 2D Linear Measurements IVSd: 1.02 0.6-0.9/0.6-1.0 cm LVIDd: 2.97 3.9-5.3/4.2-5.9 cm LVIDd Index: 1.98 2.4-3.2/2.2-3.1 cm/m2 LVIDs: 2.14 2.0-3.6 cm LVPWd: 1.14 0.7-1.1 cm LA Diam: 2.70 2.7-3.8/3.0-4.0 cm LAIDs Index: 1.80 1.5-2.3 cm/m2 LV Mass: 113.16 67-162/88-224 g LV Mass Index: 75.44 43-95/49-115 g/m2 LVOT Diam: 1.70 3.0+(-)1.3 cm 2D Systolic Function EF 4C: 57.50 >55% EF 2C: 58.60 >55% EF BiP: 59.00 >55% Mitral Valve MV Pk E: 0.79 MV PK A: 0.94 MV Decel Time: 241.00 E/A: 0.80 E'Lateral: 9.14 E'Medial: 5.66 E/E' Med: 14.00 E/E' Lat: 8.60 PHT: 70.00 MVA PHT: 3.14 Decel [place]: 3.28 Aortic Valve AoV Pk Johan: 1.03 AoV Mn Johan: 0.72 AoV VTI: 0.18 AoV Pk Grad: 4.00 Aov Mn Grad: 2.00 JARROD Cont.VTI: 1.92 LVOT LVOT Pk Johan: 0.84 LVOT Mn Johan: 0.60 LVOT VTI: 0.15 LVOT Pk Grad: 3.00 LVOT Mn Grad: 2.00 LVOT Diam: 1.70 LVOT Area: 2.27 Diastolic Function MV Pk E: 0.79 MV Pk A: 0.94 E/A: 0.80 E'Medial: 5.66 E/E' Med: 14.00 E' Laterial: 9.14 E/E' Lat: 8.60 Right Ventricle TAPSE (mm): 17.70 TVS' Johan: 10.70 Tricuspid Valve TR Pk Johan: 1.85 TR Pk Grad: 14.00 RA Press: 3.00 RVSP: 17.00 Great Vessels Aorta Sinus of Valsalva: 2.90 2.0-3.5 cm Ao Asc: 2.70 2.1-3.4 cm Pulmonary Valve PV Pk Johan: 0.80 Peak PV Grad: 3.00 Updated in Other Vendor System with Status of Final Omkar Mcmahon MD electronically signed on 07/24/2022 12:06:49 PM with status of Final
== END ==
LOC: HO.CARD 10:07
PROVIDERS: Visit Provider Internal Medicine
DX: R00.2 Palpitations (principal)
CPT/HCPCS: 93225; 93226; 93306

== ENCOUNTER 2022-08-07 20:48 | Emergency (ER) | payer OTHER, SELFPAY ==
--- NOTE | 2022-08-07 | ECG_ITS ---
Test Reason : CHEST PAIN Blood Pressure : / mmHG Vent. Rate : 103 BPM Atrial Rate : 103 BPM P-R Int : 112 ms QRS Dur : 068 ms QT Int : 364 ms P-R-T Axes : 041 006 020 degrees QTc Int : 476 ms Sinus tachycardia Otherwise normal ECG When compared with ECG of 12-MAY-2022 09:46, No significant change was found Heart rate has increased Referred By: Generic ED Physician Electronically Signed By:LA SHUKLA MD
[2022-08-07 20:54] VITALS: BMI 22.1
--- NOTE | 2022-08-07 20:58 | PC.NURSE ---
Addendum entered by Liss Light RN 08/07/22 21:02: Patient currently endorses 8/10 chest discomfort and pain. She states she called 911 today becauase it felt different, though unable to describe exactly what feels different. HR ST 1teens on telemetry upon arrival. Overall, patient is well-appearing. She denies SOB, dizziness, lightheadedness. Original Note: Patient presents endorsing chest pain and palpitations for one week. Hx anxiety and spinabifida. She has been having a workup with her PCP for tachycardia outpatient (has just completed wearing a holter monitor- results unknown). Patient reports that she does have anxiety and her heart races during an anxiety attack. Patient currently .
[2022-08-07 21:06] VITALS: BP 149/88; PULSE 109; RESP 15; TEMP 36.9; O2SAT 100
--- NOTE | 2022-08-07 21:11 | ED_ITS ---
HPI - Chest Pain General Chief Complaint: Chest Pain Stated Complaint: cp Time Seen by Provider: 08/07/22 21:11 Source: patient Mode of arrival: ambulatory Limitations: no limitations History of Present Illness HPI narrative: Patient history of anxiety taking lorazepam and Zoloft been more anxious her last 1 week ran out of her lorazepam 4 days ago since then complaining of chest pain and left arm pain very anxious unable to sleep patient had full workup including stress test Holter monitoring and echo 2 weeks ago negative Related Data Previous Rx's Medication Instructions Recorded fluticasone propionate 50 2 spray intranasal DAILY #16 grams 09/27/21 mcg/actuation nasal spray,suspension (Flonase Allergy Relief) sertraline 25 mg tablet 25 mg PO DAILY #90 tabs 12/21/21 lorazepam 0.5 mg tablet 0.5 mg PO BID PRN anxiety 90 days 03/29/22 #180 tabs zolpidem 10 mg tablet 10 mg PO BEDTIME PRN insomnia 30 04/26/22 days #30 tabs amoxicillin 500 mg capsule 1,000 mg PO Q12H 5 days #20 caps 05/12/22 azithromycin 250 mg tablet See Rx Instructions PO .COMPLEX #6 05/12/22 tabs Allergies Allergy/AdvReac Type Severity Reaction Status Date / Time milk [Milk] Allergy Intermediate THROAT Verified 03/29/22 14:43 SWELLING latex [Latex] Allergy Mild RASH Verified 03/29/22 14:43 oxycodone [From Percocet] Allergy Mild ANXIETY Verified 03/29/22 14:43 naproxen [From NAPROSYN] Allergy Unknown NAUSEA & Verified 03/29/22 14:43 VOMITING, rash ibuprofen [From Motrin] AdvReac Mild GASTRITIS Verified 03/29/22 14:43 DAIRY PRODUCTS Allergy Intermediate THROAT Uncoded 03/29/22 14:43 CLOSING UP Review of Systems Review of Systems: Yes all other systems are reviewed and are negative [facility] Past Medical History Medical History Anxiety Cystocele Eosinophilic esophagitis GERD (gastroesophageal reflux disease) Gestational diabetes Iron deficiency anemia Osteomyelitis of right foot Osteoporosis Overactive bladder Renal calculi Right foot ulcer Spina bifida Uterine prolapse Vitamin D deficiency Surgical History History of back surgery History of surgery History of tubal ligation Family History Family History Mother Diabetes High blood pressure Stroke Father High cholesterol Stroke Other Mental health disorder Social History Social History Housing: Apartment Alcohol intake: current Alcohol intake frequency: does not drink Alcohol type: wine Patient Tobacco Use Status: Never used Tobacco e-Cigarette/Vaping Use: Never Used Second Hand Smoke Exposure: No Substance Use Type: Marijuana Advance Directives: No Advance Directives Information Provided: No service: No Current occupational status: disabled Cognitive needs: No Hearing needs: No Vision needs: No Physical Exam Vital Signs: Vital Signs: Last Vital Signs Temp 98.5 F 08/07/22 21:06 Pulse 87 08/07/22 22:31 Resp 16 08/07/22 22:31 BP 143/86 H 08/07/22 22:31 Pulse Ox 97 08/07/22 22:31 O2 Del Method 08/07/22 22:31 BMI result Body Mass Index 22.1 Appearance: Alert. Oriented X3. No acute distress. Very anxious shaking Eyes: PERRLA, No Nystagmus ENT: Pharynx normal. Oral Mucosa moist Neck: Normal inspection. Neck supple. CVS: Normal heart rate and rhythm. Pulses normal. Respiratory: No respiratory distress. Equal air entry bilateral, no wheezing/rales/rhonchi Abdomen: Soft and nontender. Bowel sounds are present, no mass palpable, no CVA tenderness Skin: Skin warm and dry. Normal skin color. Normal skin turgor. Extremities: No lower extremity edema. No calf tenderness Neuro: Oriented X 3. No motor deficit. No sensory deficit.No cerebellar signs , cranial nerves II-XII intact MDM - Chest Pain MDM Narrative Medical decision making narrative: Patient history of anxiety got 180 tablets of lorazepam on 06/26 says that she finished the pills 4 days ago likely she taking over the prescribed doses patient advised to follow with PCP patient states that she lost the pills Lab Data Attestation: I reviewed the patient's lab results. Result diagrams: 08/07/22 21:06 08/07/22 21:06 Labs: Lab Results 08/07/22 08/07/22 08/07/22 Range/Units 21:06 21:06 21:06 WBC 9.3 (4.8-10.8) X10*3/uL RBC 4.34 (4.20-5.50) X10*6/uL Hgb 12.7 (12.0-16.0) g/dl Hct 38.1 (37.0-47.0) % MCV 87.8 (80.0-98.0) fL MCH 29.3 (27.0-33.0) pg MCHC 33.3 (31.0-35.0) g/dl RDW 13.4 (11.0-16.0) % Plt Count 278 (160-400) X10*3/uL MPV 10.1 (9.4-12.3) fL Immature Gran % (Auto) 0.4 (0.0-0.4) % Neut % (Auto) 64.0 (45-73) % Lymph % (Auto) 27.6 (20-40) % [place] % (Auto) 7.0 (2-11) % Eos % (Auto) 0.7 (0-4) % Baso % (Auto) 0.3 (0-2) % Lymph # (Auto) 2.6 (1.2-4.9) X10*3/uL [place] # (Auto) 0.7 (0.1-1.2) X10*3/uL Eos # (Auto) 0.1 (0.0-0.4) X10*3/uL Baso # (Auto) 0.0 (0.0-0.2) X10*3/uL Abs Immat Gran (auto) 0.04 H (0.00-0.03) X10*3/uL Absolute Neuts (auto) 6.0 (2.0-8.3) x10*3/uL Absolute Nucleated RBC 0.000 (0.0-0.012) X10*3/uL Nucleated RBC % (auto) 0.0 (0.0-0.2) /100WBC Sodium 139 (135-145) mmol/L Potassium 3.7 (3.3-5.1) mmol/L Chloride 108 (96-108) mmol/L Carbon Dioxide 21 L (22-29) mmol/L Anion Gap 14 (12-20) BUN 7 L (9-16) mg/dL Creatinine 0.70 (0.5-1.4) mg/dL Estim Creat Clear Calc 107.1 Estimated GFR > 60 Random Glucose 122 H (60-115) mg/dL Calcium 8.6 (8.4-10.2) mg/dL Total Bilirubin < 0.2 (0.0-1.0) mg/dL AST 14 D (5-31) U/L ALT 9 (0-31) U/L Alkaline Phosphatase 83 (39-117) U/L Troponin I High Sens < 3.5 (<3.5-17.0) ng/L Total Protein 7.0 (6.5-8.0) g/dL Albumin 4.0 (3.5-5.0) g/dL ECG Data ECG #1: Attestation: I personally reviewed and interpreted this ECG as follows: Interpretation: Sinus tachycardia heart rate 103 beats per minute normal intervals normal axis no acute ST-T changes no acute ischemia Discharge Plan Discharge Clinical Impression: Atypical chest pain, Anxiety Patient Disposition: Home, Self-Care Instructions: Noncardiac Chest Pain (ED), Anxiety (ED) Additional Instructions: Do not take extra doses of lorazepam Follow-up with your psychiatrist/PCP Prescriptions: No Action fluticasone propionate [Flonase Allergy Relief] 50 mcg/actuation spray,suspension 2 spray intranasal DAILY Qty: 16 5RF Rx Instructions: administer into each nostril sertraline 25 mg tablet 25 mg PO DAILY Qty: 90 3RF zolpidem 10 mg tablet 10 mg PO BEDTIME PRN (Reason: insomnia) 30 Days Qty: 30 3RF azithromycin 250 mg tablet See Rx Instructions .ROUTE .COMPLEX Qty: 6 0RF Rx Instructions: For 250 mg dose pack: take 500 mg today (day 1), then 250 mg for 4 days (days 2-5) amoxicillin 500 mg capsule 1,000 mg PO Q12H 5 Days Qty: 20 0RF lorazepam 0.5 mg tablet 0.5 mg PO BID PRN (Reason: anxiety) 90 Days Qty: 180 1RF
[2022-08-07 21:16] LABS: MANUAL DIFF FLAG NO
[2022-08-07 21:20] LABS: Basophils Percent Auto 0.3 % (0-2); Eosinophils Absolute Auto 0.1 X10*3/uL (0.0-0.4); Eosinophils Percent Auto 0.7 % (0-4); Hematocrit 38.1 % (37.0-47.0); Hemoglobin 12.7 g/dl (12.0-16.0); Imm Gran Abs Auto 0.04 X10*3/uL (0.00-0.03); Imm Gran Pct Auto 0.4 % (0.0-0.4); Lymphocytes Absolute Auto 2.6 X10*3/uL (1.2-4.9); Lymphocytes Percent Auto 27.6 % (20-40); Mean Corpuscular HGB Conc 33.3 g/dl (31.0-35.0); Mean Corpuscular Hemoglobin 29.3 pg (27.0-33.0); Mean Corpuscular Volume 87.8 fL (80.0-98.0); Mean Platelet Volume 10.1 fL (9.4-12.3); Monocytes Absolute Auto 0.7 X10*3/uL (0.1-1.2); Platelet Count 278 X10*3/uL (160-400); Red Blood Count 4.34 X10*6/uL (4.20-5.50); Red Cell Distribution Width 13.4 % (11.0-16.0); White Blood Count 9.3 X10*3/uL (4.8-10.8)
[2022-08-07] MEDS: LORazepam 1 MG TABLET PO (21:25)
[2022-08-07 21:45] LABS: Alanine Aminotransferase 9 U/L (0-31); Alkaline Phosphatase 83 U/L (39-117); Anion Gap 14 (12-20); Aspartate Amino Transferase 14 U/L (5-31); Bilirubin Total < 0.2 mg/dL (0.0-1.0); Blood Urea Nitrogen 7 mg/dL (9-16); Calcium 8.6 mg/dL (8.4-10.2); Carbon Dioxide 21 mmol/L (22-29); Chloride 108 mmol/L (96-108); Creatinine Clr Calc Pharmacy 107.1; Estimated Glomerular Filt Rate > 60; Glucose Random 122 mg/dL (60-115); Potassium 3.7 mmol/L (3.3-5.1); Sodium 139 mmol/L (135-145)
[2022-08-07 21:51] LABS: Troponin-I High Sensitivity < 3.5 ng/L (<3.5-17.0)
[2022-08-07 22:31] VITALS: BP 143/86; PULSE 87; RESP 16; O2SAT 97
== END 2022-08-07 23:09 | disposition home or self-care (01) ==
PROVIDERS: Emergency Provider Internal Medicine; PCP Internal Medicine
DX: R07.89 Other chest pain (principal); F41.1 Generalized anxiety disorder; F43.0 Acute stress reaction; Z79.899 Other long term (current) drug therapy
CPT/HCPCS: 36415; 80053; 84484; 85025; 93005; 99283

== ENCOUNTER 2022-09-09 12:51 | Outpatient (REF) | payer OTHER, SELFPAY ==
--- NOTE | ~2022-09-09 | MM_ITS ---
EXAMINATION: MM DIAGNOSTIC DIGITAL BREAST TOMOSYNTHESIS, BILATERAL US DIAGNOSTIC ULTRASOUND BREAST, LEFT CLINICAL INFORMATION: Due for yearly. Waxing and waning palpable area noted by patient anterior 12:00 left breast. Some correlation with menses. Small milky discharge with squeezing. Prior benign biopsy left breast 06/01/2018 (Fibrocystic changes including apocrine metaplasia, fibrosis, microcysts, moderate ductal hyperplasia and columnar cell hyperplasia without atypia). COMPARISON: Mammography: 12/30/2019, 12/18/2018, 06/01/2018, 05/19/2018 (baseline); ultrasound left breast 05/22/2018, 06/01/2018. TECHNIQUE: Digital breast tomosynthesis is performed in both the craniocaudal and mediolateral oblique views along with computer-aided detection (CAD). Synthesized 2D images are generated from the tomosynthesis. Ultrasound left breast is targeted to the upper and upper outer breast anterior to posterior. Grayscale imaging and color Doppler are performed without and with harmonics. Patient is able to point to area of concern at time of imaging. FINDINGS: There are scattered areas of fibroglandular density (ACR BI-RADS breast composition Category b). Parenchymal pattern is similar to prior exams. There is no significant mass or developing density or architectural abnormality. Again, biopsy clip marker is present central anterior 12:00 left breast with nodular asymmetry similar to prior studies. Tomography shows several incidental benign oil cysts in the mid to anterior upper outer left breast, largest measuring 0.9 x 0.7 cm. The axilla and skin contours are unremarkable. Ultrasound left breast demonstrates the oil cysts seen on mammography, largest 1:00 position 7 cm from nipple measuring under 1 cm. The area of palpable concern corresponds to the fibrocystic changes with clip marker previously sampled and similar on mammography to prior exams. There is no interval solid mass or dominant cyst or architectural abnormality. No skin thickening or edema tracking in soft tissue planes. Results are discussed with the patient at time of visit. MM/MM tomosynthesis diagnostic BI IMPRESSION: -No significant mammographic changes from prior studies. -Palpable concern on left corresponds to previously sampled fibrocystic changes with biopsy clip marker. There are also some small incidental oil cyst upper outer left breast. ASSESSMENT: BI-RADS 2: Benign RECOMMENDATION: Routine annual mammography screening. This patient's information was entered into a reminder system with a target due date for their next mammogram.
== END 2022-09-09 12:52 | disposition home or self-care (01) ==
LOC: HO.MAMMO 12:51
PROVIDERS: PCP Internal Medicine; Visit Provider Internal Medicine
DX: N63.25 Unspecified lump in the left breast, overlapping quadrants (principal)
CPT/HCPCS: 76642; 77062; 77066

== ENCOUNTER 2022-11-28 02:46 | Emergency (ER) | payer OTHER, SELFPAY ==
--- NOTE | ~2022-11-28 | XR_ITS ---
EXAMINATION: XR CHEST CLINICAL INFORMATION: Shortness of breath COMPARISON: 05/12/2022 TECHNIQUE: Frontal view of the chest was obtained. FINDINGS: The lungs are clear with no focal consolidation. No evidence of pneumothorax, pulmonary edema, or pleural effusions. Cardiac size is within normal limits. Prominent fat pad noted at the right cardiophrenic angle. No acute osseous findings. XR/XR chest 1V IMPRESSION: No acute cardiopulmonary findings.
[2022-11-28 03:06] VITALS: BP 160/100; PULSE 115; O2SAT 100
[2022-11-28 03:22] VITALS: BP 148/85; PULSE 94; RESP 16; TEMP 36.8; O2SAT 98; BMI 27.4
--- NOTE | 2022-11-28 03:25 | ECG_ITS ---
Test Reason : DIZZINESS Blood Pressure : / mmHG Vent. Rate : 087 BPM Atrial Rate : 087 BPM P-R Int : 128 ms QRS Dur : 068 ms QT Int : 408 ms P-R-T Axes : 000 187 163 degrees QTc Int : 490 ms Limb leads reversal Normal sinus rhythm Right superior axis deviation Prolonged QT Abnormal ECG When compared with ECG of 07-AUG-2022 21:05, Limb leads are reversed Referred By: Generic ED Physician Electronically Signed By:Jay Treviño
[2022-11-28 03:57] LABS: Basophils Percent Auto 0.2 % (0-2); Eosinophils Absolute Auto 0.2 X10*3/uL (0.0-0.4); Eosinophils Percent Auto 1.8 % (0-4); Hematocrit 38.7 % (37.0-47.0); Hemoglobin 12.8 g/dl (12.0-16.0); Imm Gran Abs Auto 0.02 X10*3/uL (0.00-0.03); Imm Gran Pct Auto 0.2 % (0.0-0.4); Lymphocytes Absolute Auto 2.3 X10*3/uL (1.2-4.9); Lymphocytes Percent Auto 26.7 % (20-40); MANUAL DIFF FLAG NO; Mean Corpuscular HGB Conc 33.1 g/dl (31.0-35.0); Mean Corpuscular Hemoglobin 29.2 pg (27.0-33.0); Mean Corpuscular Volume 88.4 fL (80.0-98.0); Monocytes Absolute Auto 0.7 X10*3/uL (0.1-1.2); Monocytes Percent Auto 7.7 % (2-11); Neutrophils Absolute Auto 5.5 x10*3/uL (2.0-8.3); Neutrophils Percent Auto 63.4 % (45-73); Platelet Count 303 X10*3/uL (160-400); Red Blood Count 4.38 X10*6/uL (4.20-5.50); Red Cell Distribution Width 13.2 % (11.0-16.0); White Blood Count 8.7 X10*3/uL (4.8-10.8)
[2022-11-28 04:10] LABS: Anion Gap 14 (12-20); Blood Urea Nitrogen 9 mg/dL (9-16); Calcium 8.9 mg/dL (8.4-10.2); Carbon Dioxide 26 mmol/L (22-29); Chloride 103 mmol/L (96-108); Creatinine Clr Calc Pharmacy 68.2; Estimated Glomerular Filt Rate > 60; Glucose Random 109 mg/dL (60-115); Potassium 3.7 mmol/L (3.3-5.1); Sodium 139 mmol/L (135-145)
[2022-11-28 04:27] LABS: Troponin-I High Sensitivity < 3.5 ng/L (<3.5-17.0)
[2022-11-28 04:35] LABS: Influenza A PCR NEGATIVE (Negative); Influenza B PCR NEGATIVE (Negative); Resp Syncy Virus RNA Qual PCR NEGATIVE (Negative); SARS COV2 PCR INHOUSE NEGATIVE (Negative)
[2022-11-28 05:47] VITALS: BP 145/79; PULSE 89; RESP 16; TEMP 36.7; O2SAT 98
== END 2022-11-28 08:48 | disposition left against medical advice (07) ==
PROVIDERS: Emergency Provider Emergency Medicine
DX: R42 Dizziness and giddiness (principal); R00.2 Palpitations; R06.02 Shortness of breath; Z20.822 Contact with and (suspected) exposure to COVID-19; Z20.828 Contact with and (suspected) exposure to other viral communicable diseases
CPT/HCPCS: 0241U; 36415; 71045; 80048; 84484; 85025; 93005; 99283

== ENCOUNTER 2023-05-06 19:08 | Emergency (ER) | payer OTHER, SELFPAY ==
--- NOTE | ~2023-05-06 | XR_ITS ---
EXAMINATION: XR ANKLE, LEFT CLINICAL INFORMATION: Left ankle pain. COMPARISON: None available. TECHNIQUE: AP, lateral, and mortise views of the left ankle. FINDINGS: Old healed fracture is present at the included distal shaft of the left fibula. Postsurgical changes are noted within the distal metaphysis of the left tibia. Mild periarticular osteopenia is noted at the left ankle and the visualized included part of the left foot. XR/XR ankle LT min 3V IMPRESSION: Marked periarticular osteopenia at the left ankle without any radiographic evidence of displaced fracture, subluxation or dislocation.
--- NOTE | ~2023-05-06 | XR_ITS ---
EXAMINATION: XR HIP, LEFT CLINICAL INFORMATION: Left-sided hip pain. Status post repair of spina bifida COMPARISON: CT abdomen pelvis 09/25/2019 TECHNIQUE: Two views of the left hip. FINDINGS: Again seen is some flattening of the right humeral head and some remodeling of the acetabulum. The left hip appears unremarkable without evidence of fracture or dislocation. Soft tissues are unremarkable. XR/XR hip LT min 2V IMPRESSION: No acute finding. Chronic changes described above.
--- NOTE | 2023-05-06 19:27 | ED.GENADULT ---
HPI - General Adult General Chief complaint: Fall Stated complaint: Fall/unable to feel leg Time Seen by Provider: 05/07/23 03:02 Source: patient Mode of arrival: ambulatory Limitations: no limitations History of Present Illness HPI narrative: Patient with history of spina bifida apparently had mechanical fall a week ago since then noticed pain in the left side of the thigh with numbness feeling off and on with muscle spasm of left side, also has pain in the left ankle with slight swelling patient wears ankle brace no back pain no other injuries Related Data Home Medications Medication Instructions Recorded Confirmed mirabegron 25 mg tablet,extended 25 mg PO DAILY 09/02/22 09/02/22 release 24 hr (Myrbetriq) Previous Rx's Medication Instructions Recorded sertraline 25 mg tablet 25 mg PO DAILY #90 tabs 12/21/21 sennosides 8.6 mg-docusate sodium 2 tab-cap PO BEDTIME #60 tabs 09/02/22 50 mg tablet (Senna-S) lorazepam 0.5 mg tablet 0.5 mg PO BID PRN anxiety 90 days 03/06/23 #180 tabs fluticasone propionate 50 2 spray intranasal DAILY #16 grams 03/17/23 mcg/actuation nasal spray,suspension (Flonase Allergy Relief) zolpidem 10 mg tablet 10 mg PO BEDTIME PRN insomnia 30 03/17/23 days #30 tabs cyclobenzaprine 10 mg tablet 10 mg PO TID PRN muscle spasm #20 05/07/23 tabs Allergies Allergy/AdvReac Type Severity Reaction Status Date / Time milk [Milk] Allergy Intermediate THROAT Verified 09/02/22 17:44 SWELLING latex [Latex] Allergy Mild RASH Verified 09/02/22 17:44 oxycodone [From Percocet] Allergy Mild ANXIETY Verified 09/02/22 17:44 naproxen [From NAPROSYN] Allergy Unknown NAUSEA & Verified 09/02/22 17:44 VOMITING, rash ibuprofen [From Motrin] AdvReac Mild GASTRITIS Verified 09/02/22 17:44 DAIRY PRODUCTS Allergy Intermediate THROAT Uncoded 09/02/22 17:44 CLOSING UP Review of Systems Review of Systems: Yes all other systems are reviewed and are negative PMFSH Past Medical History Medical History Anxiety Cystocele Eosinophilic esophagitis GERD (gastroesophageal reflux disease) Gestational diabetes Iron deficiency anemia Osteomyelitis of right foot Osteoporosis Overactive bladder Renal calculi Right foot ulcer Spina bifida Uterine prolapse Vitamin D deficiency Surgical History History of back surgery History of surgery History of tubal ligation Family History Family History Mother Diabetes High blood pressure Stroke Father High cholesterol Stroke Maternal Grandmother Myocardial infarct Paternal Uncle Brain cancer Colon cancer Other Mental health disorder Social History Social History Housing: Apartment Alcohol intake: current Alcohol intake frequency: a few times a month Alcohol type: wine Patient Tobacco Use Status: Never used Tobacco Smoked in Last 30 Days: No e-Cigarette/Vaping Use: Never Used Second Hand Smoke Exposure: No Use of substances other than those prescribed or required for medical reasons: No Substance Use Type: Marijuana Advance Directives: No Advance Directives Information Provided: No Patient : No service: No Current occupational status: disabled Cognitive needs: No Hearing needs: No Vision needs: No Physical Exam ED Vital Signs: Vital Signs - 24 hr 05/06/23 19:50 05/07/23 02:35 05/07/23 04:06 Temperature 96.7 F L 98.3 F 98.1 F Pulse Rate 99 90 84 Respiratory Rate 14 12 2 L Blood Pressure 173/96 H 158/96 H Pulse Oximetry 97 98 98 Oxygen Delivery Method Room Air BMI result Body Mass Index 27.0 Appearance: Alert. Oriented X3. No acute distress. ENT: Pharynx normal. Oral Mucosa moist Neck: Normal inspection. Neck supple. CVS: Normal heart rate and rhythm. Pulses normal. Respiratory: No respiratory distress. Equal air entry bilateral, Abdomen: Soft and nontender. Bowel sounds are present, Skin: Skin warm and dry. Normal skin color. Normal skin turgor. Extremities: No lower extremity edema. No calf tenderness pelvis stable good hip movements slight swelling of the left ankle no spinal tenderness Neuro: Oriented X 3. Residual weakness deformity of spina bifid the left leg with minimal movements of the left ankle patchy sensation loss as in the past tenderness at lateral cutaneous nerve area with muscle spasm Course Course Course Narrative: This is an RME: Additional HPI, ROS, PE not included below will be deferred to primary provider. 47 year old female hx of spina bifida presents w/ LLE pain s/p fall about a week ago. worse w/ walking. Reports abnormal sensation to LLE reports at baseline has decreased sensation to LLE 97% on RA, Pulse 99 T: 96.7 R: 14 Medications Administered Discontinued Medications Generic Name Dose Route Start Last Admin Trade Name Freq PRN Reason Stop Dose Admin Cyclobenzaprine HCl 10 mg 05/07/23 03:09 05/07/23 03:21 Cyclobenzaprine Hcl 10 Mg Tablet PO 05/07/23 03:10 10 mg ONCE ONE Administration Medical Decision Making Medical Decision Making [facility] Narrative: Patient s/pmechanical fall with muscles fell on left leg x-ray negative for fracture likely has left cutaneous nerve inflammation with muscle spasm discharge patient home on Flexeril Discharge Plan Discharge Clinical Impression: Muscle spasm of left lower extremity Patient Disposition: Home, Self-Care Instructions: Muscle Spasm (ED) Additional Instructions: Likely you have muscle spasm of left leg Take Flexeril for muscle relaxation as prescribed Follow-up with PCP if any concerns Prescriptions: New cyclobenzaprine 10 mg tablet 10 mg PO TID PRN (Reason: muscle spasm) Qty: 20 0RF No Action sertraline 25 mg tablet 25 mg PO DAILY Qty: 90 3RF lorazepam 0.5 mg tablet 0.5 mg PO BID PRN (Reason: anxiety) 90 Days Qty: 180 1RF zolpidem 10 mg tablet 10 mg PO BEDTIME PRN (Reason: insomnia) 30 Days Qty: 30 3RF fluticasone propionate [Flonase Allergy Relief] 50 mcg/actuation spray,suspension 2 spray intranasal DAILY Qty: 16 5RF Rx Instructions: administer into each nostril Myrbetriq 25 mg tablet extended release 24 hr 25 mg PO DAILY sennosides-docusate sodium [Senna-S] 8.6-50 mg tablet 2 tab-cap PO BEDTIME Qty: 60 0RF
[2023-05-06 19:50] VITALS: PULSE 99; RESP 14; TEMP 35.9; O2SAT 97; BMI 27.0
[2023-05-07 02:35] VITALS: BP 173/96; PULSE 90; RESP 12; TEMP 36.8; O2SAT 98
[2023-05-07] MEDS: Cyclobenzaprine HCl 10 MG TABLET PO (03:21)
[2023-05-07 04:06] VITALS: BP 158/96; PULSE 84; RESP 2; TEMP 36.7; O2SAT 98
== END 2023-05-07 04:32 | disposition home or self-care (01) ==
PROVIDERS: Emergency Provider Internal Medicine; PCP Internal Medicine
DX: M62.838 Other muscle spasm (principal); M79.652 Pain in left thigh; M25.572 Pain in left ankle and joints of left foot; Q05.9 Spina bifida, unspecified; Z79.899 Other long term (current) drug therapy
CPT/HCPCS: 73502; 73610; 99283; 99284

== ENCOUNTER 2023-05-31 18:53 | Emergency (ER) | payer OTHER, SELFPAY ==
--- NOTE | ~2023-05-31 | CT_ITS ---
EXAMINATION: CT ABDOMEN AND PELVIS WITH CONTRAST CLINICAL INFORMATION: Left lower quadrant abdominal pain status post bladder lift 1 week ago COMPARISON: 09/25/2019 TECHNIQUE: Multidetector volumetric images were obtained from the superior aspect of the liver through the pubic symphysis following administration 85 mL of Omnipaque 350 intravenous contrast. Sagittal and coronal reformatted images were obtained on the technologist's workstation. Oral contrast: No This CT examination was performed using dose optimization techniques as appropriate, variously including the following: *Automated exposure control *Adjustment of mA and/or kV according to patient size (this includes techniques or standardized protocols for targeted exams where dose is matched to indication/reason for exam; i.e. extremities or head) *Use of iterative reconstruction technique DLP: 419 mGy-cm FINDINGS: LUNG BASES: The visualized lung bases are unremarkable. LIVER, GALLBLADDER, AND BILIARY TREE: The liver is normal in size, shape, and attenuation. No focal hepatic lesion or biliary ductal dilatation is present. The gallbladder is unremarkable with no evidence of radiopaque gallstones, gallbladder wall thickening, or obvious pericholecystic inflammatory changes. PANCREAS: Unremarkable. SPLEEN: Unremarkable. ADRENAL GLANDS: Unremarkable. KIDNEYS AND URETERS: The kidneys are normal in size, shape, and attenuation. No hydronephrosis or hydroureter. There aren't couple nonobstructive calculi in the lower pole left kidney, punctate in size and 2 mm within the lower and mid poles, respectively. No perinephric stranding. BLADDER: Bladder is moderately distended with a volume of 700 mL. There is a 'horseshoe' shaped peripherally hyperemic fluid surrounding the proximal urethra measuring up to 1.7 x 1.5 x 1.6 cm having the appearance of a urethral diverticulum, although possibly postoperative periurethral bulking agent was used. Associated hyperemia surrounds this structure. GASTROINTESTINAL TRACT: The small and large bowel are unremarkable. The appendix is unremarkable. ABDOMINAL WALL: There is skin thickening and underlying fat stranding and increased density of the fat posterior to the bilateral ischia compatible with decubitus changes. LYMPH NODES: Normal. VASCULAR: Unremarkable. PELVIC VISCERA: Uterus and adnexa unremarkable. 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 Postoperative changes may be complicating this appearance. Appearance unchanged from prior. CT/CT abdomen pelvis w IV con IMPRESSION: There is a 'horseshoe' shaped peripherally hyperemic fluid surrounding the proximal urethra measuring up to 1.7 x 1.5 x 1.6 cm having the appearance of a urethral diverticulum, although possibly postoperative periurethral bulking agent was used. The hyperemia suggests inflammation or infection. * Moderate bladder distention with a volume of 700 mL. 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 * Decubitus changes posterior to the bilateral ischia. Recommend direct visual inspection This result was discussed with Nilam MARCUM at 06/01/2023 1:28 AM and it was ascertained that the content and urgency of the report was understood at the time of direct communication.
--- NOTE | 2023-05-31 19:07 | ED.ABDPAIN ---
HPI - Abdominal Pain General Chief Complaint: Abdominal Pain Stated Complaint: ? uti back pain Time Seen by Provider: 05/31/23 23:04 Source: patient and family Mode of arrival: ambulatory Limitations: no limitations History of Present Illness HPI narrative: 47yoF with a PMHx of Hysterectomy few years ago who is now status post bladder prolapse repair approximately 1 weeks ago performed at [facility] by Aster Borges who is presenting to the ER with complaints of dysuria with lower back pain which is radiating to her lower suprapubic abdomen/left lower quadrant since yesterday worse today. She reports increased urinary frequency and urgency. She has been taking [id number] medication with no symptomatic relief. She called her surgeon at [facility] and she has a follow-up appointment coming up this week although she did not feel like she could wait therefore she came here for further evaluation treatment due to the pain. She reports subjective fevers and chills with nausea. She denies any dizziness, headaches, neck pain, chest pain or shortness of breath, congestion or cough, abnormal vaginal discharge, diarrhea constipation, hematuria, recent falls or trauma or recent travel, thoughts of STDs or any other symptoms complaints or concerns at this time. MD elicited complaint: abdominal pain Pertinent past history: other ( recent bladder prolapse surgery) Onset (ago): day(s) (2) Pain Consistency: constant Location: LLQ and suprapubic Severity: moderate Quality: cramping and aching Radiation: back Exacerbating factors: nothing Relieving factors: nothing Associated symptoms: nausea, fever, chills and dysuria Related Data Home Medications Medication Instructions Recorded Confirmed mirabegron 25 mg tablet,extended 25 mg PO DAILY 09/02/22 09/02/22 release 24 hr (Myrbetriq) Previous Rx's Medication Instructions Recorded sertraline 25 mg tablet 25 mg PO DAILY #90 tabs 12/21/21 sennosides 8.6 mg-docusate sodium 2 tab-cap PO BEDTIME #60 tabs 09/02/22 50 mg tablet (Senna-S) lorazepam 0.5 mg tablet 0.5 mg PO BID PRN anxiety 90 days 03/06/23 #180 tabs fluticasone propionate 50 2 spray intranasal DAILY #16 grams 03/17/23 mcg/actuation nasal spray,suspension (Flonase Allergy Relief) zolpidem 10 mg tablet 10 mg PO BEDTIME PRN insomnia 30 03/17/23 days #30 tabs cyclobenzaprine 10 mg tablet 10 mg PO TID PRN muscle spasm #20 05/07/23 tabs cefuroxime axetil 250 mg tablet 250 mg PO BID 7 days #14 tabs 06/01/23 tramadol 50 mg tablet 50 mg PO Q6H PRN pain #20 tabs 06/01/23 Allergies Allergy/AdvReac Type Severity Reaction Status Date / Time milk [Milk] Allergy Intermediate THROAT Verified 05/31/23 19:16 SWELLING latex [Latex] Allergy Mild RASH Verified 05/31/23 19:16 oxycodone [From Percocet] Allergy Mild ANXIETY Verified 05/31/23 19:16 naproxen [From NAPROSYN] Allergy Unknown NAUSEA & Verified 05/31/23 19:16 VOMITING, rash ibuprofen [From Motrin] AdvReac Mild GASTRITIS Verified 05/31/23 19:16 DAIRY PRODUCTS Allergy Intermediate THROAT Uncoded 05/31/23 19:16 CLOSING UP Review of Systems Review of Systems Constitutional : No Weight loss, No Fever, No Chills, No Night Sweats, No Fatigue, No Malaise ENT/Mouth : No Hearing loss, No Ear Pain, No Nasal Congestion, No Sinus Pain, No Hoarseness, No sore throat, No Rhinorrhea, No Swallowing Difficulty Eyes: No Eye Pain, No Swelling, No Redness, No Foreign Body, No Discharge, No Vision Changes Cardiovascular : No Chest Pain, No SOB, No Dyspnea on Exertion, No Orthopnea, No Edema, No Palpitations Respiratory : No Cough, No Sputum, No Wheezing, No Smoke Exposure, No Dyspnea Gastrointestinal : + Nausea, + abdominal pain, No Vomiting, No Diarrhea, No Constipation, No Hematochezia, No Melena Genitourinary : no irregular bleeding, No Dysuria, No Urinary Frequency, No Hematuria, No Urinary Incontinence, No Urgency, No Flank Pain, No Urinary Flow Changes, No Hesitancy Musculoskeletal : No joint pain, No Myalgias, No Joint Swelling Skin : No Skin Lesions, No rash Neuro : No Weakness, No Numbness, No Paresthesias, No Loss of Consciousness, No Dizziness, No Headache Psych : No Anxiety/Panic, No Depression, No SI/HI/AH/VH, No Social Issues, Heme/Lymph: No Bruising, No Bleeding,No Lymphadenopathy Endocrine : No Polyuria, No Polydipsia, No Temperature Intolerance Yes all other systems are reviewed and are negative [facility] Past Medical History Attestation statement: The following information was validated with the patient. Source: old records reviewed, obtained from family and nursing notes reviewed Medical History Anxiety Cystocele Eosinophilic esophagitis GERD (gastroesophageal reflux disease) Gestational diabetes Iron deficiency anemia Osteomyelitis of right foot Osteoporosis Overactive bladder Renal calculi Right foot ulcer Spina bifida Uterine prolapse Vitamin D deficiency Surgical History History of back surgery History of surgery History of tubal ligation Family History Family History Mother Diabetes High blood pressure Stroke Father High cholesterol Stroke Maternal Grandmother Myocardial infarct Paternal Uncle Brain cancer Colon cancer Other Mental health disorder Social History Social History Housing: Apartment Alcohol intake: current Alcohol intake frequency: a few times a month Alcohol type: wine Patient Tobacco Use Status: Never used Tobacco e-Cigarette/Vaping Use: Never Used Second Hand Smoke Exposure: No Substance Use Type: Marijuana Advance Directives: No Advance Directives Information Provided: Yes service: No Current occupational status: disabled Cognitive needs: No Hearing needs: No Vision needs: No Physical Exam ED Vital Signs: Vital Signs - 24 hr 05/31/23 19:16 05/31/23 22:07 Temperature 98.1 F 99.3 F Pulse Rate 99 91 Respiratory Rate 18 22 H Blood Pressure 166/88 H 150/80 H Pulse Oximetry 99 98 Oxygen Delivery Method Room Air Room Air BMI result Body Mass Index 27.7 Vital signs have been reviewed and all within normal limits Appearance: Alert. Oriented X3. No acute distress. Head: Normal external exam. Normocephalic. Eyes: PERRLA. EOMI. Conjunctiva and sclera normal. Eyelids normal. ENT: Pharynx normal. Uvula midline. Moist mucous membranes. No trismus noted. No drooling noted. No muffled voice noted. Neck: Normal inspection. Neck supple. FROM. No adenopathy. No meningeal signs. CVS: Normal heart rate and rhythm. Heart sound normal. No murmurs noted. Pulses normal throughout. Respiratory: No respiratory distress. Painless inspiration. Breath sounds normal. No wheezes/rales/rhonchi noted. Chest nontender. No accessory muscle usage noted or decreased air movement noted. Abdomen: Soft and Moderate TTP to suprapubic and LLQ with guarding. Nondistended. No rigidity. Bowel sounds normal in all 4 quadrants. No distention noted. No organomegaly noted. No visible injury noted. No rebound tenderness. Negative Rovsing sign. Negative obturator's sign. Negative psoas sign. Negative Collier sign. Back: No CVA tenderness. Full range of motion noted. Skin: Skin warm and dry. Normal skin color. Normal skin turgor. No rashes/lesions/lacerations noted. Extremities: Extremities exhibit normal range of motion. Extremities nontender. Neuro: Oriented X 3. No motor deficit. No sensory deficit. Reflexes normal. Normal steady gait. CN's II-XII intact bilaterally? Course Course Course Narrative: This is an RME: Additional HPI, ROS, PE not included below will be deferred to primary provider. Patient has a 47-year-old female who presents emergency department for evaluation reporting that she had a partial hysterectomy 1 week ago at [facility]. Two days ago she developed dysuria, lower back pain, which is radiating into the lower abdomen since yesterday. Symptoms have been worsening, and states that the pain is unbearable today. Endorses fever and chills with nausea, no vomiting. Plan: Labs, urinalysis Reevaluation(s) Reevaluation #1: 47yoF with a PMHx of Hysterectomy few years ago who is now status post bladder prolapse repair approximately 1 week ago performed at [facility] by Aster Borges who is presenting to the ER with complaints of dysuria with lower back pain which is radiating to her lower suprapubic abdomen/left lower quadrant since yesterday worse today. She reports increased urinary frequency and urgency. she reports associated fevers and chills. She denies any other symptoms related to this. Concern for UTI versus pyelonephritis versus possible perforation or infectious process. Less concerned for diverticulitis due to H&P not consistent with this or appendicitis or ovarian torsion or ectopic . Labs were obtained while the patient was in the waiting room and patient noted to have an elevated white blood cell count/leukocytosis, potassium 3.1, carbon dioxide 21, BUN 7 lactic acid is 1.2, UA positive for leukocytes with greater than 50 white blood cells and negative nitrates although due to patient symptoms along with labs patient will be started on IV Rocephin and will obtain a CT scan abdomen pelvis with IV contrast. Provide IV morphine 4 mg and IV Zofran 4 mg along with IV fluids and re-evaluate. Time: 23:20 Reevaluation #2: radiologist called me about the patient's CT scan it appears abnormal and she appears to be retaining urine. He was also concern for possible decubitus ulcers although patient does ambulate and she has scarring of older cubitus ulcers no new ulcers noted at this time or wounds to her buttocks. Patient is still retaining 800 mL after post residual urine bladder scan therefore will discuss this case with [facility] for further evaluation treatment possible transfer. Patient understands agrees with this plan. Time: 01:32 Reevaluation #3: Will place a Gonzalez catheter still waiting [facility] to call back sign out to Dr. New pending further evaluation and recommendations per [facility]. Time: 02:38 Medical Decision Making Medical Decision Making MDM Narrative: see course Case discussed with Dr. Lawson at [facility] says that she placed bulking agent which were seen in the CT scan advised to have Gonzalez catheter and antibiotics for UTI DC home and follow-up on Friday Differential Diagnosis Differential Diagnoses: The differential diagnosis associated with the presentation includes see course Consult Healthcare Provider Management of the patient was discussed with: Flexo Operator ( [facility]) Lab Data MDM Lab Attestation statement: I reviewed the patient's lab results. 05/31/23 19:25 05/31/23 19:25 Labs: Lab Results 05/31/23 05/31/23 05/31/23 Range/Units 19:25 19:25 19:25 WBC 14.9 H (4.8-10.8) X10*3/uL RBC 4.78 (4.20-5.50) X10*6/uL Hgb 13.8 (12.0-16.0) g/dl Hct 41.2 (37.0-47.0) % MCV 86.2 (80.0-98.0) fL MCH 28.9 (27.0-33.0) pg MCHC 33.5 (31.0-35.0) g/dl RDW 13.6 (11.0-16.0) % Plt Count 325 (160-400) X10*3/uL MPV 9.9 (9.4-12.3) fL Immature Gran % (Auto) 0.5 H (0.0-0.4) % Neut % (Auto) 75.2 H (45-73) % Lymph % (Auto) 18.4 L (20-40) % Evans % (Auto) 5.0 (2-11) % Eos % (Auto) 0.6 (0-4) % Baso % (Auto) 0.3 (0-2) % Lymph # (Auto) 2.7 (1.2-4.9) X10*3/uL Evans # (Auto) 0.7 (0.1-1.2) X10*3/uL Eos # (Auto) 0.1 (0.0-0.4) X10*3/uL Baso # (Auto) 0.1 (0.0-0.2) X10*3/uL Abs Immat Gran (auto) 0.08 H (0.00-0.03) X10*3/uL Absolute Neuts (auto) 11.2 H (2.0-8.3) x10*3/uL Absolute Nucleated RBC 0.000 (0.0-0.012) X10*3/uL Nucleated RBC % (auto) 0.0 (0.0-0.2) /100WBC Sodium 137 (135-145) mmol/L Potassium 3.1 L (3.3-5.1) mmol/L Chloride 104 (96-108) mmol/L Carbon Dioxide 21 L (22-29) mmol/L Anion Gap 15 (12-20) BUN 7 L (9-16) mg/dL Creatinine 0.77 (0.5-1.4) mg/dL Estim Creat Clear Calc 67.5 Estimated GFR > 60 Random Glucose 97 (60-115) mg/dL Lactic Acid (0.5-2.0) mmol/L Calcium 9.4 (8.4-10.2) mg/dL Total Bilirubin 0.4 (0.0-1.0) mg/dL AST 18 (5-31) U/L ALT 23 (0-31) U/L Alkaline Phosphatase 95 (39-117) U/L Total Protein 7.7 (6.5-8.0) g/dL Albumin 4.2 (3.5-5.0) g/dL Urine Color Yellow Urine Appearance Cloudy Urine pH 6.0 (5.0-9.0) Ur Specific Muir 1.015 (1.005-1.025) Urine Protein Negative (Neg-Trace) mg/dL Urine Glucose (UA) Negative (Negative) mg/dL Urine Ketones Negative (Negative) mg/dL Urine Blood Trace H (Negative) Urine Nitrite Negative (Negative) Ur Leukocyte Esterase Large (3+) H (Negative) Urine RBC 0-2 (0-2) /HPF Urine WBC >50 H (0-5) /HPF Ur Squamous Epith Cells 0-2 (0-2) /HPF Urine Bacteria 4+ (None Seen) Hyaline Casts 0-2 (0-2) /LPF 05/31/23 Range/Units 23:33 WBC (4.8-10.8) X10*3/uL RBC (4.20-5.50) X10*6/uL Hgb (12.0-16.0) g/dl Hct (37.0-47.0) % MCV (80.0-98.0) fL MCH (27.0-33.0) pg MCHC (31.0-35.0) g/dl RDW (11.0-16.0) % Plt Count (160-400) X10*3/uL MPV (9.4-12.3) fL Immature Gran % (Auto) (0.0-0.4) % Neut % (Auto) (45-73) % Lymph % (Auto) (20-40) % Evans % (Auto) (2-11) % Eos % (Auto) (0-4) % Baso % (Auto) (0-2) % Lymph # (Auto) (1.2-4.9) X10*3/uL Evans # (Auto) (0.1-1.2) X10*3/uL Eos # (Auto) (0.0-0.4) X10*3/uL Baso # (Auto) (0.0-0.2) X10*3/uL Abs Immat Gran (auto) (0.00-0.03) X10*3/uL Absolute Neuts (auto) (2.0-8.3) x10*3/uL Absolute Nucleated RBC (0.0-0.012) X10*3/uL Nucleated RBC % (auto) (0.0-0.2) /100WBC Sodium (135-145) mmol/L Potassium (3.3-5.1) mmol/L Chloride (96-108) mmol/L Carbon Dioxide (22-29) mmol/L Anion Gap (12-20) BUN (9-16) mg/dL Creatinine (0.5-1.4) mg/dL Estim Creat Clear Calc Estimated GFR Random Glucose (60-115) mg/dL Lactic Acid 1.2 (0.5-2.0) mmol/L Calcium (8.4-10.2) mg/dL Total Bilirubin (0.0-1.0) mg/dL AST (5-31) U/L ALT (0-31) U/L Alkaline Phosphatase (39-117) U/L Total Protein (6.5-8.0) g/dL Albumin (3.5-5.0) g/dL Urine Color Urine Appearance Urine pH (5.0-9.0) Ur Specific Muir (1.005-1.025) Urine Protein (Neg-Trace) mg/dL Urine Glucose (UA) (Negative) mg/dL Urine Ketones (Negative) mg/dL Urine Blood (Negative) Urine Nitrite (Negative) Ur Leukocyte Esterase (Negative) Urine RBC (0-2) /HPF Urine WBC (0-5) /HPF Ur Squamous Epith Cells (0-2) /HPF Urine Bacteria (None Seen) Hyaline Casts (0-2) /LPF Independent Interpretation I performed an independent interpretation of an: CT Scan Interpretation: CT scan abdomen pelvis with IV contrast reviewed by myself this time independent interpretation agreeable with radiologist report Radiology Impression Discussion of test interpretation with radiology: I have reviewed the radiologist's reading. Radiologist Impression: FINDINGS: LUNG BASES: The visualized lung bases are unremarkable.? LIVER, GALLBLADDER, AND BILIARY TREE: The liver is normal in size, shape, and attenuation. No focal hepatic lesion or biliary ductal dilatation is present. The gallbladder is unremarkable with no evidence of radiopaque gallstones, gallbladder wall thickening, or obvious pericholecystic inflammatory changes.? PANCREAS: Unremarkable.? SPLEEN: Unremarkable.? ADRENAL GLANDS: Unremarkable.? KIDNEYS AND URETERS: The kidneys are normal in size, shape, and attenuation. No hydronephrosis or hydroureter. There aren't couple nonobstructive calculi in the lower pole left kidney, punctate in size and 2 mm within the lower and mid poles, respectively. No perinephric stranding. ? BLADDER: Bladder is moderately distended with a volume of 700 mL. There is a 'horseshoe' shaped peripherally hyperemic fluid surrounding the proximal urethra measuring up to 1.7 x 1.5 x 1.6 cm having the appearance of a urethral diverticulum, although possibly postoperative periurethral bulking agent was used. Associated hyperemia surrounds this structure. GASTROINTESTINAL TRACT: The small and large bowel are unremarkable. The appendix is unremarkable.? ABDOMINAL WALL: There is skin thickening and underlying fat stranding and increased density of the fat posterior to the bilateral ischia compatible with decubitus changes. LYMPH NODES: Normal. VASCULAR: Unremarkable. PELVIC VISCERA: Uterus and adnexa unremarkable.? 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 Postoperative changes may be complicating this appearance. Appearance unchanged from prior. CT/CT abdomen pelvis w IV con IMPRESSION: There is a 'horseshoe' shaped peripherally hyperemic fluid surrounding the proximal urethra measuring up to 1.7 x 1.5 x 1.6 cm having the appearance of a urethral diverticulum, although possibly postoperative periurethral bulking agent was used. The hyperemia suggests inflammation or infection. *? Moderate bladder distention with a volume of 700 mL. *? 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 *? Decubitus changes posterior to the bilateral ischia. Recommend direct visual inspection ? This result was discussed with Nilam MARCUM at 06/01/2023 1:28 AM and it was ascertained that the content and urgency of the report was understood at the time of direct communication. Independent Historian Clinical information obtained from an independent historian. History obtained from or confirmed by: Spouse External Record Review External record reviewed: Inpatient record, Office record, Outpatient record, Prior outpatient labs, Prior outpatient radiology, Primary care record and Outside ED record all prior labs/ imaging /EKG and notes that are acceptable and our system reviewed by myself Prescription Management I considered prescription management with: Pain Medication and Antibiotic Chronic Conditions Patient?s care impacted by: Other ( spinal bifida) Social Determinants Patient?s care significantly limited by Social Determinants of Health including: Other Social Determinant of Health Medications Administered Discontinued Medications Generic Name Dose Route Start Last Admin Trade Name Freq PRN Reason Stop Dose Admin Acetaminophen 975 mg 06/01/23 02:22 06/01/23 02:57 Acetaminophen 325 Mg Tablet PO 06/01/23 02:23 975 mg ONCE ONE Administration Sodium Chloride 1,000 mls @ 999 mls/hr 05/31/23 23:30 06/01/23 00:08 Ns IVCONT 06/01/23 00:30 999 mls/hr .Q1H1M BERTRAND Administration Ceftriaxone Sodium 1 gm/ 50 mls @ 100 mls/hr 05/31/23 23:20 06/01/23 00:08 Sodium Chloride IV 05/31/23 23:49 100 mls/hr ONCE ONE Administration Iohexol 85 ml 06/01/23 00:40 06/01/23 00:41 Iohexol 350 Mg/Ml 100 Ml Infus..Btl IV 06/01/23 00:41 85 ml ONCE ONE Administration Morphine Sulfate 4 mg 05/31/23 23:21 06/01/23 00:08 Morphine Sulfate 4 Mg/Ml Cartridge IVPUSH 05/31/23 23:22 4 mg ONCE ONE Administration Protocol Morphine Sulfate 4 mg 06/01/23 02:22 06/01/23 02:58 Morphine Sulfate 4 Mg/Ml Cartridge IVPUSH 06/01/23 02:23 4 mg ONCE ONE Administration Protocol Ondansetron HCl 4 mg 05/31/23 23:21 06/01/23 00:08 Ondansetron Hcl 4 Mg/2 Ml Vial IVPUSH 05/31/23 23:22 4 mg ONCE ONE Administration Potassium Chloride 40 meq 06/01/23 00:04 06/01/23 00:13 Potassium Chloride Er 20 Meq Tab.Er.Prt PO 06/01/23 00:05 40 meq ONCE ONE Administration Critical Care Time Critical Care Time Critical Care Time: Yes Total Critical Care Time: 60 Attestation: I personally attest to this time spent taking care of the patient Discharge Plan Discharge Clinical Impression: UTI (urinary tract infection), Acute urinary retention Patient Disposition: Home, Self-Care Instructions: Urinary Tract Infection in Women (DC), Gonzalez Catheter Placement and Care (ED), Acute Urinary Retention in Women (ED) Additional Instructions: Drink plenty of fluid Care of Gonzalez catheter as advised Antibiotic as prescribed Follow-up with your surgeon in 2 days Prescriptions: New cefuroxime axetil 250 mg tablet 250 mg PO BID 7 Days Qty: 14 0RF tramadol 50 mg tablet 50 mg PO Q6H PRN (Reason: pain) Qty: 20 0RF No Action sertraline 25 mg tablet 25 mg PO DAILY Qty: 90 3RF lorazepam 0.5 mg tablet 0.5 mg PO BID PRN (Reason: anxiety) 90 Days Qty: 180 1RF zolpidem 10 mg tablet 10 mg PO BEDTIME PRN (Reason: insomnia) 30 Days Qty: 30 3RF fluticasone propionate [Flonase Allergy Relief] 50 mcg/actuation spray,suspension 2 spray intranasal DAILY Qty: 16 5RF Rx Instructions: administer into each nostril cyclobenzaprine 10 mg tablet 10 mg PO TID PRN (Reason: muscle spasm) Qty: 20 0RF Myrbetriq 25 mg tablet extended release 24 hr 25 mg PO DAILY sennosides-docusate sodium [Senna-S] 8.6-50 mg tablet 2 tab-cap PO BEDTIME Qty: 60 0RF Stand Alone Forms: Work/School Release Interventions: ED Discharge Assessment Last Done: 06/01/23 05:39 Discharge Date/Time: 06/01/23 05:40
[2023-05-31 19:16] VITALS: BP 166/88; PULSE 99; RESP 18; TEMP 36.7; O2SAT 99; BMI 27.7
[2023-05-31 19:35] LABS: MANUAL DIFF FLAG NO
[2023-05-31 19:39] LABS: Basophils Absolute Auto 0.1 X10*3/uL (0.0-0.2); Basophils Percent Auto 0.3 % (0-2); Eosinophils Absolute Auto 0.1 X10*3/uL (0.0-0.4); Eosinophils Percent Auto 0.6 % (0-4); Hematocrit 41.2 % (37.0-47.0); Hemoglobin 13.8 g/dl (12.0-16.0); Imm Gran Abs Auto 0.08 X10*3/uL (0.00-0.03); Imm Gran Pct Auto 0.5 % (0.0-0.4); Lymphocytes Absolute Auto 2.7 X10*3/uL (1.2-4.9); Lymphocytes Percent Auto 18.4 % (20-40); Mean Corpuscular HGB Conc 33.5 g/dl (31.0-35.0); Mean Corpuscular Hemoglobin 28.9 pg (27.0-33.0); Mean Corpuscular Volume 86.2 fL (80.0-98.0); Mean Platelet Volume 9.9 fL (9.4-12.3); Monocytes Absolute Auto 0.7 X10*3/uL (0.1-1.2); Neutrophils Absolute Auto 11.2 x10*3/uL (2.0-8.3); Neutrophils Percent Auto 75.2 % (45-73); Platelet Count 325 X10*3/uL (160-400); Red Blood Count 4.78 X10*6/uL (4.20-5.50); Red Cell Distribution Width 13.6 % (11.0-16.0); White Blood Count 14.9 X10*3/uL (4.8-10.8)
[2023-05-31 19:48] LABS: Appearance Urine Cloudy; Color Urine Yellow; Glucose Urine UA Negative (Negative); Leukocyte Esterase Urine Large (3+) (Negative); Nitrite Urine Negative (Negative); Specific Gravity - Urine 1.015 (1.005-1.025); UMIC TRIGGER UACC YES; Urine Blood Trace (Negative); Urine Ketones Negative (Negative); Urine Protein Negative (Neg-Trace)
[2023-05-31 19:53] LABS: Bacteria Urine 4+ (None Seen); Hyaline Casts Urine 0-2 /LPF (0-2); RBC Urine 0-2 /HPF (0-2); Squamous Epithelial Cell Urine 0-2 /HPF (0-2); UACC Culture Trigger YES; WBC Urine >50 /HPF (0-5)
[2023-05-31 20:08] LABS: Alanine Aminotransferase 23 U/L (0-31); Albumin Level 4.2 g/dL (3.5-5.0); Alkaline Phosphatase 95 U/L (39-117); Anion Gap 15 (12-20); Aspartate Amino Transferase 18 U/L (5-31); Bilirubin Total 0.4 mg/dL (0.0-1.0); Blood Urea Nitrogen 7 mg/dL (9-16); Calcium 9.4 mg/dL (8.4-10.2); Carbon Dioxide 21 mmol/L (22-29); Chloride 104 mmol/L (96-108); Creatinine Clr Calc Pharmacy 67.5; Estimated Glomerular Filt Rate > 60; Glucose Random 97 mg/dL (60-115); Potassium 3.1 mmol/L (3.3-5.1); Sodium 137 mmol/L (135-145); Total Protein 7.7 g/dL (6.5-8.0)
[2023-05-31 22:07] VITALS: BP 150/80; PULSE 91; RESP 22; TEMP 37.4; O2SAT 98
[2023-06-01] MEDS: 0.9 % Sodium Chloride 1,000 ML 999 ML IVCONT (00:08)
[2023-06-01] MEDS: Morphine Sulfate 4 MG/ML CARTRIDGE IVPUSH ×2 (00:08→02:58)
[2023-06-01] MEDS: cefTRIAXone sodium 1 GM in 0.9 % Sodium Chloride 50 ML IV (00:08)
[2023-06-01] MEDS: ondansetron HCL 4 MG/2 ML VIAL IVPUSH (00:08)
[2023-06-01] MEDS: Potassium Chloride ER 20 MEQ TAB.ER.PRT 40 MEQ PO (00:13)
[2023-06-01 00:14] LABS: Lactic Acid 1.2 mmol/L (0.5-2.0)
[2023-06-01] MEDS: iohexoL 350 MG/ML 100 ML INFUS..BTL 85 ML IV (00:41)
[2023-06-01] MEDS: Acetaminophen 325 MG TABLET 975 MG PO (02:57)
[2023-06-01 05:38] VITALS: BP 145/70; PULSE 100; RESP 16; TEMP 37
--- NOTE | 2023-06-01 05:41 | PC.NURSE ---
pt has a leg bag on her left leg. teaching and demonstration with return demonstratrion by pt. urine clear yellow no distress.
== END 2023-06-01 05:40 | disposition home or self-care (01) ==
PROVIDERS: Nurse Practitioner Family; Physician Assistant Medical; Emergency Provider Emergency Medicine; PCP Internal Medicine
DX: N39.0 Urinary tract infection, site not specified (principal); B96.20 Unspecified Escherichia coli [E. coli] as the cause of diseases classified elsewhere; Z90.711 Acquired absence of uterus with remaining cervical stump; R33.9 Retention of urine, unspecified
CPT/HCPCS: 36415; 74177; 80053; 81001; 83605; 85025; 87040; 87086; 87088; 87186; 96374; 96375; 96376; 99284; J0696; J2270; J2405; Q9967

== ENCOUNTER 2023-10-11 10:39 | Emergency (ER) | payer OTHER, SELFPAY ==
--- NOTE | ~2023-10-11 | XR_ITS ---
EXAMINATION: XR CHEST CLINICAL INFORMATION: Cough. COMPARISON: Chest 11/28/2022 TECHNIQUE: Frontal view of the chest was obtained. FINDINGS: No significant abnormality is noted involving the heart, lungs, mediastinum, bony thorax or soft tissues. XR/XR chest 1V IMPRESSION: Unremarkable chest exam.
[2023-10-11 10:42] VITALS: BP 160/93; PULSE 104; RESP 18; TEMP 36.4; O2SAT 97; BMI 27.9
[2023-10-11 11:10] LABS: Appearance Urine Clear; Color Urine Yellow; Glucose Urine UA Negative (Negative); Leukocyte Esterase Urine Moderate (2+) (Negative); Nitrite Urine Positive (Negative); PH 6.5 (5.0-9.0); UMIC TRIGGER UACC YES; Urine Blood Trace (Negative); Urine Ketones Negative (Negative); Urine Protein Negative (Neg-Trace)
[2023-10-11 11:15] LABS: Bacteria Urine 4+ (None Seen); Hyaline Casts Urine 0-2 /LPF (0-2); RBC Urine 0-2 /HPF (0-2); UACC Culture Trigger YES; WBC Urine >50 /HPF (0-5)
[2023-10-11 11:45] LABS: Influenza A PCR NEGATIVE (Negative); Influenza B PCR NEGATIVE (Negative); Resp Syncy Virus RNA Qual PCR NEGATIVE (Negative); SARS COV2 PCR INHOUSE NEGATIVE (Negative)
--- NOTE | 2023-10-11 11:52 | ED_ITS ---
HPI - General Adult General Chief complaint: Upper Respiratory Symptoms Stated complaint: cold like symptoms/ traveled from [place] 10/09 Time Seen by Provider: 10/11/23 11:21 Source: patient Mode of arrival: ambulatory Limitations: no limitations History of Present Illness HPI narrative: 48-year-old female with pmhx significant for recurrent urinary tract infections, generalized anxiety disorder, spina bifida, GERD, eosinophilic esophagitis, insomnia presents to the ED today with a complaint of fever, cough, urinary frequency/urgency and dysuria x1 day. States that she returned from [place] 2 days ago. She developed a fever yesterday. T-max of 102? F. cough is nonproductive. states her daughter was sick last week with similar symptoms which resolved. Additionally reports urinary frequency/urgency and dysuria that began yesterday. Believes she has a UTI as she gets these often. Last UTI last year. Denies headache, dizziness, neck pain, ear pain, eye pain, sore throat, shortness of breath, wheezing, chest pain, nausea/vomiting, abdominal pain, flank pain lower extremity pain or swelling. Related Data Home Medications Medication Instructions Recorded Confirmed mirabegron 25 mg tablet,extended 25 mg PO DAILY 09/02/22 09/02/22 release 24 hr (Myrbetriq) Previous Rx's Medication Instructions Recorded sertraline 25 mg tablet 25 mg PO DAILY #90 tabs 12/21/21 sennosides 8.6 mg-docusate sodium 2 tab-cap (2 x 8.6-50 mg) PO 09/02/22 50 mg tablet (Senna-S) BEDTIME #60 tabs lorazepam 0.5 mg tablet 0.5 mg PO BID PRN anxiety 90 days 03/06/23 #180 tabs cyclobenzaprine 10 mg tablet 10 mg PO TID PRN muscle spasm #20 05/07/23 tabs cefuroxime axetil 250 mg tablet 250 mg PO BID 7 days #14 tabs 06/01/23 tramadol 50 mg tablet 50 mg PO Q6H PRN pain #20 tabs 06/01/23 fluticasone propionate 50 2 spray intranasal DAILY #16 grams 08/11/23 mcg/actuation nasal spray,suspension (Flonase Allergy Relief) zolpidem 10 mg tablet 10 mg PO BEDTIME PRN insomnia 30 08/11/23 days #30 tabs cefpodoxime 200 mg tablet 200 mg PO BID 14 days #28 tabs 10/11/23 Allergies Allergy/AdvReac Type Severity Reaction Status Date / Time milk [Milk] Allergy Intermediate THROAT Verified 10/11/23 10:41 SWELLING latex [Latex] Allergy Mild RASH Verified 10/11/23 10:41 oxycodone [From Percocet] Allergy Mild ANXIETY Verified 10/11/23 10:41 naproxen [From NAPROSYN] Allergy Unknown NAUSEA & Verified 10/11/23 10:41 VOMITING, rash ibuprofen [From Motrin] AdvReac Mild GASTRITIS Verified 10/11/23 10:41 DAIRY PRODUCTS Allergy Intermediate THROAT Uncoded 05/31/23 19:16 CLOSING UP Review of Systems Review of Systems: Constitutional: +fever, no chills, fatigue, night sweats, weight changes ENT/Mouth: No ear pain, hearing loss, nasal congestion, sinus pain, rhinorrhea, sore throat Eyes: No eye pain, swelling, redness, vision changes, discharge Cardio: No chest pain, palpitations, MARTIN, orthopnea, peripheral edema Pulm: No SOB, +cough, No sputum, wheezing, dyspnea, hemoptysis GI: No nausea, vomiting, hematemesis, abdominal pain, diarrhea, constipation, hematochezia, melena : No irregular bleeding, +dysuria, +frequency, +urgency, No hesitancy, hematuria, flank pain, urinary flow changes, urinary incontinence or retention MSK: No back pain, neck pain, joint pain, myalgias Skin: No lesions, rashes Neuro: No weakness, numbness, paresthesias, LOC, dizziness, headache All other systems reviewed and are negative. [facility] Past Medical History Attestation statement: The following information was validated with the patient. Source: old records reviewed and nursing notes reviewed Medical History Osteoporosis Gestational diabetes Uterine prolapse Iron deficiency anemia Spina bifida Overactive bladder Cystocele Right foot ulcer Vitamin D deficiency Osteomyelitis of right foot GERD (gastroesophageal reflux disease) Anxiety Renal calculi Eosinophilic esophagitis Surgical History History of tubal ligation History of surgery History of back surgery Family History Family History Mother Diabetes High blood pressure Stroke Father High cholesterol Stroke Maternal Grandmother Myocardial infarct Paternal Uncle Brain cancer Colon cancer Other Mental health disorder Social History Social History Housing: Apartment Alcohol intake: current Alcohol intake frequency: a few times a month Alcohol type: wine Patient Tobacco Use Status: Never used Tobacco e-Cigarette/Vaping Use: Never Used Second Hand Smoke Exposure: No Substance Use Type: Marijuana Advance Directives: No Advance Directives Information Provided: No service: No Current occupational status: disabled Cognitive needs: No Hearing needs: No Vision needs: No Physical Exam ED Vital Signs: Vital Signs - 24 hr 10/11/23 10:42 Temperature 97.5 F Pulse Rate 104 H Respiratory Rate 18 Blood Pressure 160/93 H Pulse Oximetry 97 Oxygen Delivery Method Room Air BMI result Body Mass Index 27.9 Afebrile Const General: cooperative, healthy appearing, comfortable, no acute distress, alert and awake Orientation/consciousness: patient oriented x3 Limitations: no limitations HENMT Other: + posterior oropharynx without erythema or edema, uvula midline, no tonsillar exudates or peritonsillar masses, controlling secretions speaking complete sentences. Head: Yes normal to inspection Ears: hearing grossly normal bilaterally, external ears normal, TM's normal bilaterally, EAC's normal, mastoids normal and no periauricular adenopathy General nose exam: Normal external nose present, Normal nares present and No nasal discharge present Face and sinus: Yes normal facial exam and Yes sinuses nontender Mouth: Normal oral and palatal mucosa present and lip normal Eyes General: appearance normal, both eyes and all related structures Periorbital: periorbital findings normal Conjunctivae: conjunctivae normal Sclerae: sclerae normal Pupils: Equal, round and reactive pupils present Neck Neck: Yes normal visual inspection, Yes full ROM, Yes no lymphadenopathy and Yes no meningeal signs Resp Effort & Inspection: normal respiratory effort, able to speak in complete sentences, no cough, no respiratory distress and no use of accessory muscles Auscultation: clear to auscultation bilaterally and no wheezes Cardio Rate: regular rate Rhythm: regular rhythm Peripheral pulses: radial pulses present GI Inspection: Yes normal to inspection Palpation (GI): Soft to palpation, nontender, no guarding and no splenomegaly Other: + no CVAT bilaterally Skin General skin exam: no rashes or lesions noted Neuro General: patient oriented x3, gait normal, moves all extremities and no meningeal signs Cranial nerves: Yes Equal, round and reactive pupils present Extrem General: Yes normal to inspection, Yes full ROM and No calf tenderness Course Course Course Narrative: 1200-- serology negative for flu, RSV, COVID. Presentation not consistent with strep throat. Presentation consistent with viral upper respiratory infection. Symptomatic treatment. Urine with trace blood, positive nitrites, moderate leukocyte esterase and over 50 WBC with 4+ bacteria >> patient has a urinary tract infection. Informed patient of serology and urine results. Will send cefpodoxime to patient's pharmacy. She is well appearing, nontoxic, no acute distress. No CVAT bilaterally. CT abdomen pelvis not warranted at this time. Patient has remained stable throughout ED visit today. Discussed strict return precautions. All questions answered at this time. Patient is agreeable with disposition and stable for discharge. Medical Decision Making Medical Decision Making [facility] Narrative: 48-year-old female with pmhx significant for recurrent urinary tract infections, generalized anxiety disorder, spina bifida, GERD, eosinophilic esophagitis, insomnia presents to the ED today with a complaint of fever, cough, urinary frequency/urgency and dysuria x1 day. Afebrile, nontoxic appearing, in no acute distress. Lungs is CTA b/l. bilateral EACs and TMs WNL. Posterior oropharynx without erythema or edema, uvula midline, no tonsillar exudates or peritonsillar masses, controlling secretions and speaking complete sentences. Abdomen soft, nd/nt, no rebound tenderness or guarding, normoactive bowel sounds x4. Bladder not palpable. No CVAT bilaterally. No calf tenderness bilaterally. Clinical concern for viral syndrome, bronchitis, pneumonia, urinary tract infection. Unlikely strep, mono, [employer], retropharyngeal abscess, epiglottitis, pneumothorax, pulmonary embolism, pleural effusion, tick-borne illness, otitis media/externa, mastoiditis, malignant otitis externa, nephrolithiasis, renal colic, pyelonephritis, PID. Plan at this time is serology and chest x-ray. Differential Diagnosis Differential Diagnoses: The differential diagnosis associated with the presentat ion includes as above. Admission/Observation not indicated. Lab Data [facility] Lab Attestation statement: I reviewed the patient's lab results. as above. Labs: Lab Results 10/11/23 Range/Units 10:59 Urine Color Yellow Urine Appearance Clear Urine pH 6.5 (5.0-9.0) Ur Specific [place] 1.010 (1.005-1.025) Urine Protein Negative (Neg-Trace) mg/dL Urine Glucose (UA) Negative (Negative) mg/dL Urine Ketones Negative (Negative) mg/dL Urine Blood Trace H (Negative) Urine Nitrite Positive H (Negative) Ur Leukocyte Esterase Moderate (2+) H (Negative) Urine RBC 0-2 (0-2) /HPF Urine WBC >50 H (0-5) /HPF Ur Squamous Epith Cells 3-5 (0-2) /HPF Urine Bacteria 4+ (None Seen) Hyaline Casts 0-2 (0-2) /LPF Influenza Type A (PCR) NEGATIVE (Negative) Influenza Type B (PCR) NEGATIVE (Negative) RSV RNA Qual (PCR) NEGATIVE (Negative) SARS-CoV-2 RNA (RT-PCR) NEGATIVE (Negative) Independent Interpretation I performed an independent interpretation of an: Plain X-Ray Interpretation: Chest x-ray without consolidation or infiltrate, agree with radiologist's interpretation. Radiology Impression Discussion of test interpretation with radiology: I have reviewed the radiologist's reading. Radiologist Impression: XR chest 1V IMPRESSION: Unremarkable chest exam. External Record Review External record reviewed: Inpatient record, Office record, Outpatient record, Prior outpatient labs, Prior outpatient radiology, Primary care record and Outside ED record Prescription Management I considered prescription management with: Pain Medication and Antibiotic Critical Care Time Critical Care Time Critical Care Time: No Discharge Plan Discharge Clinical Impression: Urinary tract infection Patient Disposition: Home, Self-Care Instructions: Urinary Tract Infection in Women (ED) Additional Instructions: You tested negative for flu, RSV, COVID. Your chest x-ray was normal. Your urine today was positive for infection. Cefpodoxime is an antibiotic that has been sent to your pharmacy. Take this as prescribed and do not miss any doses. You must complete the entire course of antibiotics. If you do not, there is a risk of the infection coming back or worsening. Follow up with your primary care provider as needed. If you develop a fever or new/ worsening symptoms call 911 or come back to the ER for further evaluation. In the case of emergency call 911. On a cephalosporin antibiotic, softer bowel movements are to be expected. Call your provider he move your bowels more than 4 times a day, your bowel movements are almost all liquid or if you get a rash. Prescriptions: New cefpodoxime 200 mg tablet 200 mg PO BID 14 Days Qty: 28 0RF Rx Instructions: must administer with a meal/food No Action sertraline 25 mg tablet 25 mg PO DAILY Qty: 90 3RF lorazepam 0.5 mg tablet 0.5 mg PO BID PRN (Reason: anxiety) 90 Days Qty: 180 1RF fluticasone propionate [Flonase Allergy Relief] 50 mcg/actuation spray,suspension 2 spray intranasal DAILY Qty: 16 5RF Rx Instructions: administer into each nostril zolpidem 10 mg tablet 10 mg PO BEDTIME PRN (Reason: insomnia) 30 Days Qty: 30 3RF cefuroxime axetil 250 mg tablet 250 mg PO BID 7 Days Qty: 14 0RF tramadol 50 mg tablet 50 mg PO Q6H PRN (Reason: pain) Qty: 20 0RF cyclobenzaprine 10 mg tablet 10 mg PO TID PRN (Reason: muscle spasm) Qty: 20 0RF Myrbetriq 25 mg tablet extended release 24 hr 25 mg PO DAILY sennosides-docusate sodium [Senna-S] 8.6-50 mg tablet 2 tab-cap PO BEDTIME Qty: 60 0RF Stand Alone Forms: Work/School Release Interventions: ED Discharge Assessment Last Done: 10/11/23 12:16 Discharge Date/Time: 10/11/23 12:17
== END 2023-10-11 12:17 | disposition home or self-care (01) ==
PROVIDERS: Emergency Provider Emergency Medicine; PCP Internal Medicine
DX: N39.0 Urinary tract infection, site not specified (principal); R05.9 Cough, unspecified; Z20.822 Contact with and (suspected) exposure to COVID-19; Z20.828 Contact with and (suspected) exposure to other viral communicable diseases; Z87.440 Personal history of urinary (tract) infections; F12.90 Cannabis use, unspecified, uncomplicated
CPT/HCPCS: 0241U; 71045; 81001; 87086; 99282; 99283

== ENCOUNTER 2023-11-25 09:42 | Emergency (ER) | payer OTHER, SELFPAY ==
[2023-11-25 09:45] VITALS: BP 143/86; PULSE 101; RESP 19; TEMP 36.6; O2SAT 95; BMI 27.3
[2023-11-25 10:02] LABS: MANUAL DIFF FLAG NO
[2023-11-25 10:04] LABS: Basophils Absolute Auto 0.1 X10*3/uL (0.0-0.2); Basophils Percent Auto 0.5 % (0-2); Eosinophils Absolute Auto 0.3 X10*3/uL (0.0-0.4); Eosinophils Percent Auto 3.3 % (0-4); Hematocrit 41.6 % (37.0-47.0); Hemoglobin 14.1 g/dl (12.0-16.0); Imm Gran Abs Auto 0.02 X10*3/uL (0.00-0.03); Imm Gran Pct Auto 0.2 % (0.0-0.4); Lymphocytes Absolute Auto 2.4 X10*3/uL (1.2-4.9); Lymphocytes Percent Auto 25.4 % (20-40); Mean Corpuscular HGB Conc 33.9 g/dl (31.0-35.0); Mean Corpuscular Hemoglobin 29.5 pg (27.0-33.0); Mean Platelet Volume 10.2 fL (9.4-12.3); Monocytes Absolute Auto 0.5 X10*3/uL (0.1-1.2); Monocytes Percent Auto 5.8 % (2-11); Neutrophils Percent Auto 64.8 % (45-73); Platelet Count 340 X10*3/uL (160-400); Red Blood Count 4.78 X10*6/uL (4.20-5.50); Red Cell Distribution Width 12.7 % (11.0-16.0); White Blood Count 9.3 X10*3/uL (4.8-10.8)
[2023-11-25 10:05] LABS: Appearance Urine Hazy; Color Urine Yellow; Glucose Urine UA Negative (Negative); Leukocyte Esterase Urine Moderate (2+) (Negative); Nitrite Urine Negative (Negative); UMIC TRIGGER UACC YES; Urine Blood Trace (Negative); Urine Ketones Negative (Negative); Urine Protein Negative (Neg-Trace)
[2023-11-25 10:11] LABS: UPreg QC Valid YES; Urine Pregnancy NEGATIVE (NEGATIVE)
[2023-11-25 10:16] LABS: Anion Gap 14 (12-20); Blood Urea Nitrogen 9 mg/dL (9-16); Calcium 9.3 mg/dL (8.4-10.2); Carbon Dioxide 24 mmol/L (22-29); Chloride 103 mmol/L (96-108); Creatinine Clr Calc Pharmacy 60.8; Estimated Glomerular Filt Rate > 60; Glucose Random 121 mg/dL (60-115); Potassium 3.3 mmol/L (3.3-5.1); Sodium 138 mmol/L (135-145)
[2023-11-25 10:19] LABS: Bacteria Urine 1+ (None Seen); Hyaline Casts Urine 0-2 /LPF (0-2); RBC Urine 0-2 /HPF (0-2); UACC Culture Trigger YES; WBC Urine 21-50 /HPF (0-5)
[2023-11-25 13:08] VITALS: BP 157/97; PULSE 105; RESP 18; TEMP 36; O2SAT 99
--- NOTE | 2023-11-25 13:10 | ED.FEMALEGU ---
HPI - Female Genitourinary General Chief complaint: Urogenital-Female Stated complaint: dizzy, back pain, dehydrated Time Seen by Provider: 11/25/23 13:10 Source: patient, RN notes reviewed and old records reviewed Mode of arrival: ambulatory Limitations: no limitations History of Present Illness HPI Narrative: 48-year-old female past medical history significant for spina bifida, tachycardia, overactive bladder presents for evaluation of left flank pain and burning with urination. She reports her symptoms started 2 days ago. She also reports a history of kidney stones and states this feels similar Denies any fevers or chills Her pain is currently an 06/05 No other complaints or concerns at this time Related Data Home Medications Medication Instructions Recorded Confirmed mirabegron 25 mg tablet,extended 25 mg PO DAILY 09/02/22 09/02/22 release 24 hr (Myrbetriq) Previous Rx's Medication Instructions Recorded sertraline 25 mg tablet 25 mg PO DAILY #90 tabs 12/21/21 sennosides 8.6 mg-docusate sodium 2 tab-cap (2 x 8.6-50 mg) PO 09/02/22 50 mg tablet (Senna-S) BEDTIME #60 tabs lorazepam 0.5 mg tablet 0.5 mg PO BID PRN anxiety 90 days 03/06/23 #180 tabs cyclobenzaprine 10 mg tablet 10 mg PO TID PRN muscle spasm #20 05/07/23 tabs cefuroxime axetil 250 mg tablet 250 mg PO BID 7 days #14 tabs 06/01/23 tramadol 50 mg tablet 50 mg PO Q6H PRN pain #20 tabs 06/01/23 fluticasone propionate 50 2 spray intranasal DAILY #16 grams 08/11/23 mcg/actuation nasal spray,suspension (Flonase Allergy Relief) zolpidem 10 mg tablet 10 mg PO BEDTIME PRN insomnia 30 08/11/23 days #30 tabs cefpodoxime 200 mg tablet 200 mg PO BID 14 days #28 tabs 10/11/23 cefuroxime axetil 250 mg tablet 250 mg PO Q12H #14 tabs 11/25/23 phenazopyridine 200 mg tablet 200 mg PO TID 6 doses #6 tabs 11/25/23 (Pyridium) Allergies Allergy/AdvReac Type Severity Reaction Status Date / Time milk [Milk] Allergy Intermediate THROAT Verified 11/25/23 09:45 SWELLING latex [Latex] Allergy Mild RASH Verified 11/25/23 09:45 oxycodone [From Percocet] Allergy Mild ANXIETY Verified 11/25/23 09:45 naproxen [From NAPROSYN] Allergy Unknown NAUSEA & Verified 11/25/23 09:45 VOMITING, rash ibuprofen [From Motrin] AdvReac Mild GASTRITIS Verified 11/25/23 09:45 DAIRY PRODUCTS Allergy Intermediate THROAT Uncoded 11/25/23 09:45 CLOSING UP Review of Systems Constitutional: Constitutional: Denies chills and Denies fever(s) Cardiovascular: Cardiovascular: Denies chest pain Gastrointestinal: Gastrointestinal: Reports abdominal pain Genitourinary: Genitourinary: Reports dysuria Musculoskeletal: Musculoskeletal: Reports back pain Integumentary/Breasts: Skin/Breast: Denies rash PMFSH Past Medical History Medical History Osteoporosis Gestational diabetes Uterine prolapse Iron deficiency anemia Spina bifida Overactive bladder Cystocele Right foot ulcer Vitamin D deficiency Osteomyelitis of right foot GERD (gastroesophageal reflux disease) Anxiety Renal calculi Eosinophilic esophagitis Surgical History History of tubal ligation History of surgery History of back surgery Family History Family History Mother Diabetes High blood pressure Stroke Father High cholesterol Stroke Maternal Grandmother Myocardial infarct Paternal Uncle Brain cancer Colon cancer Other Mental health disorder Social History Social History Housing: Apartment Alcohol intake: current Alcohol intake frequency: a few times a month Alcohol type: wine Patient Tobacco Use Status: Never used Tobacco e-Cigarette/Vaping Use: Never Used Second Hand Smoke Exposure: No Substance Use Type: Marijuana Advance Directives: No service: No Current occupational status: disabled Cognitive needs: No Hearing needs: No Vision needs: No Physical Exam Vital Signs: Vital Signs: Last Vital Signs Temp 96.8 F 11/25/23 13:08 Pulse 105 H 11/25/23 13:08 Resp 18 11/25/23 13:08 BP 157/97 H 11/25/23 13:08 Pulse Ox 99 11/25/23 13:08 O2 Del Method Room Air 11/25/23 13:08 BMI result Body Mass Index 27.3 Const: General: healthy appearing, comfortable, no acute distress, alert and awake Nutritional Appearance: well nourished Orientation/consciousness: patient oriented x3 HEENT: Head: Yes normocephalic and Yes atraumatic Eyes: Eyelids: Yes eyelids normal Conjunctivae: conjunctivae normal Sclerae: sclerae normal Corneas: corneas normal Pupils: Equal, round and reactive pupils present EOM: EOMs intact bilaterally Neck: Neck: Yes full ROM Resp: Effort & Inspection: normal respiratory effort, able to speak in complete sentences and not labored Skin: General skin exam: elasticity normal Neuro: General: patient oriented x3 Cranial nerves: Yes Equal, round and reactive pupils present and Yes Bilaterally intact EOM present Cognition (Neuro): normal cognition Medical Decision Making Medical Decision Making [facility] Narrative: 48-year-old female presents for evaluation of flank pain. She reports some associated dizziness. Her labs are reassuring. She does have a UTI reflexes her urine. There is no blood. I have a low suspicion for obstructive uropathy. I still discussed with the patient going left flank pain history of kidney stones and offered CT imaging. The patient declines at this time which I feel is appropriate as I have a lower suspicion for obstructive uropathy. Will treat the patient with cefuroxime b.i.d. times 7 days for UTI. There is no evidence of sepsis. Differential Diagnosis Differential Diagnoses: The differential diagnosis associated with the presentation includes UTI Cystitis Obstructive uropathy Flank pain Muscle strain Lab Data [facility] Lab Attestation statement: I reviewed the patient's lab results. No leukocytosis or anemia. No electrolyte abnormalities. Normal renal function. UA has white cells with 1+ bacteria, no blood 11/25/23 09:56 11/25/23 09:56 Labs: Lab Results 11/25/23 Range/Units 09:56 WBC 9.3 (4.8-10.8) X10*3/uL RBC 4.78 (4.20-5.50) X10*6/uL Hgb 14.1 (12.0-16.0) g/dl Hct 41.6 (37.0-47.0) % MCV 87.0 (80.0-98.0) fL MCH 29.5 (27.0-33.0) pg MCHC 33.9 (31.0-35.0) g/dl RDW 12.7 (11.0-16.0) % Plt Count 340 (160-400) X10*3/uL MPV 10.2 (9.4-12.3) fL Immature Gran % (Auto) 0.2 (0.0-0.4) % Neut % (Auto) 64.8 (45-73) % Lymph % (Auto) 25.4 (20-40) % [place] % (Auto) 5.8 (2-11) % Eos % (Auto) 3.3 (0-4) % Baso % (Auto) 0.5 (0-2) % Lymph # (Auto) 2.4 (1.2-4.9) X10*3/uL [place] # (Auto) 0.5 (0.1-1.2) X10*3/uL Eos # (Auto) 0.3 (0.0-0.4) X10*3/uL Baso # (Auto) 0.1 (0.0-0.2) X10*3/uL Abs Immat Gran (auto) 0.02 (0.00-0.03) X10*3/uL Absolute Neuts (auto) 6.0 (2.0-8.3) x10*3/uL Absolute Nucleated RBC 0.000 (0.0-0.012) X10*3/uL Nucleated RBC % (auto) 0.0 (0.0-0.2) /100WBC Sodium 138 (135-145) mmol/L Potassium 3.3 (3.3-5.1) mmol/L Chloride 103 (96-108) mmol/L Carbon Dioxide 24 (22-29) mmol/L Anion Gap 14 (12-20) BUN 9 (9-16) mg/dL Creatinine 0.84 (0.5-1.4) mg/dL Estim Creat Clear Calc 60.8 Estimated GFR > 60 Random Glucose 121 H (60-115) mg/dL Calcium 9.3 (8.4-10.2) mg/dL Urine Color Yellow Urine Appearance Hazy Urine pH 6.0 (5.0-9.0) Ur Specific [place] 1.010 (1.005-1.025) Urine Protein Negative (Neg-Trace) mg/dL Urine Glucose (UA) Negative (Negative) mg/dL Urine Ketones Negative (Negative) mg/dL Urine Blood Trace (Negative) Urine Nitrite Negative (Negative) Ur Leukocyte Esterase Moderate (2+) H (Negative) Urine RBC 0-2 (0-2) /HPF Urine WBC 21-50 H (0-5) /HPF Ur Squamous Epith Cells 3-5 (0-2) /HPF Urine Bacteria 1+ (None Seen) Hyaline Casts 0-2 (0-2) /LPF Urine Test NEGATIVE (NEGATIVE) Tests considered The following testing was considered but not selected: Considered CT abdomen pelvis to evaluate for obstructive uropathy but patient declines which I feel is appropriate Discharge Plan Discharge Clinical Impression: UTI (urinary tract infection) Patient Disposition: Home, Self-Care Instructions: Urinary Tract Infection in Women (ED) Additional Instructions: Your workup in the ER was reassuring. This includes your blood work pain Your urine sample did appear to show a UTI or urine infection Take the antibiotics twice daily for 7 days Take Pyridium as directed for urinary discomfort This may turn your urine orange, this was normal and will resolve when you stop taking it Drink lots of fluids Return for new or worsening symptoms Prescriptions: New cefuroxime axetil 250 mg tablet 250 mg PO Q12H Qty: 14 0RF phenazopyridine [Pyridium] 200 mg tablet 200 mg PO TID Qty: 6 0RF No Action sertraline 25 mg tablet 25 mg PO DAILY Qty: 90 3RF lorazepam 0.5 mg tablet 0.5 mg PO BID PRN (Reason: anxiety) 90 Days Qty: 180 1RF fluticasone propionate [Flonase Allergy Relief] 50 mcg/actuation spray,suspension 2 spray intranasal DAILY Qty: 16 5RF Rx Instructions: administer into each nostril zolpidem 10 mg tablet 10 mg PO BEDTIME PRN (Reason: insomnia) 30 Days Qty: 30 3RF cefuroxime axetil 250 mg tablet 250 mg PO BID 7 Days Qty: 14 0RF tramadol 50 mg tablet 50 mg PO Q6H PRN (Reason: pain) Qty: 20 0RF cyclobenzaprine 10 mg tablet 10 mg PO TID PRN (Reason: muscle spasm) Qty: 20 0RF cefpodoxime 200 mg tablet 200 mg PO BID 14 Days Qty: 28 0RF Rx Instructions: must administer with a meal/food Myrbetriq 25 mg tablet extended release 24 hr 25 mg PO DAILY sennosides-docusate sodium [Senna-S] 8.6-50 mg tablet 2 tab-cap PO BEDTIME Qty: 60 0RF Interventions: ED Discharge Assessment Last Done: 11/25/23 13:15
== END 2023-11-25 13:16 | disposition home or self-care (01) ==
PROVIDERS: Emergency Provider Emergency Medicine Emergency Medical Services; PCP Internal Medicine
DX: N39.0 Urinary tract infection, site not specified (principal); R42 Dizziness and giddiness; M54.50 Low back pain, unspecified; E86.0 Dehydration; R00.0 Tachycardia, unspecified; Z87.442 Personal history of urinary calculi; Z79.899 Other long term (current) drug therapy
CPT/HCPCS: 36415; 80048; 81001; 81003; 81025; 85025; 87086; 87088; 87186; 99282; 99283

== ENCOUNTER 2024-05-20 10:27 | Outpatient (AMB) | payer OTHER, SELFPAY ==
[2024-05-20 10:28] VITALS: BP 158/94; PULSE 117; O2SAT 98; BMI 29.2
--- NOTE | 2024-05-20 10:28 | MHC.PC.OV ---
Vital Signs 05/20/24 10:28 05/20/24 10:50 Height 4 ft 9 in Weight 135 lb 0.4 oz BMI 29.2 BP 158/94 H 138/88 Blood Pressure Location Lt brachial Lt brachial Position Sitting Sitting Pulse 117 H Pulse Source Pulse Oximeter Pulse Oximetry (%) 98 Oxygen Delivery Method Room Air Intake Visit Reasons: left hand numbness Intake Note: pt c/o hand numbness X1 month due to a fall. Printer Floor Covering Assistant Required: No Allergies milk [Milk] Allergy (Intermediate, Verified 05/20/24 10:31) THROAT SWELLING latex [Latex] Allergy (Mild, Verified 05/20/24 10:31) RASH oxycodone [From Percocet] Allergy (Mild, Verified 05/20/24 10:31) ANXIETY naproxen [From NAPROSYN] Allergy (Unknown, Verified 05/20/24 10:31) NAUSEA & VOMITING, rash ibuprofen [From Motrin] Adverse Reaction (Mild, Verified 05/20/24 10:31) GASTRITIS DAIRY PRODUCTS Allergy (Intermediate, Uncoded 05/20/24 10:31) THROAT CLOSING UP Medication List - Last Reconciled 05/20/24 by Coby Mohan PA-C cefpodoxime 200 mg PO BID 14 days cefuroxime axetil 250 mg PO BID 7 days cefuroxime axetil 250 mg PO Q12H fluticasone propionate 50 mcg/actuation (Flonase Allergy Relief) 2 sprays intranasal DAILY lorazepam 0.5 mg PO BID PRN 90 days sertraline 25 mg PO DAILY zolpidem 10 mg PO BEDTIME PRN 30 days Tobacco use date assessed: 05/20/24 HPI left hand numbness HPI Details 47-year-old female with history of spina bifida limps on walking has a history of GERD with eosinophilic esophagitis, insomnia, overactive bladder and generalized anxiety disorder last seen 08/[address] Castillo coming in for an acute problem. In review of the notes, patient was seen in the emergency department 11/2023 for urinary tract infection and treated with cefuroxime and Pyridium. Seen in the ER 09/2023 for UTI and given cefpodoxime. Due for mammogram and colonoscopy. Patient states she had a fall 2 weeks ago and landed on her left wrist and was seen in [facility] urgent and x-rays were negative. She is still having continued pain in the wrist and at the base of the palm as well as numbness in the 1st 3 fingers. She feels the numbness and tingling has been worsening and has been avoiding holding things without hand due to dropping items. [facility] Medical History Osteoporosis Gestational diabetes Uterine prolapse Iron deficiency anemia Spina bifida Overactive bladder Cystocele Right foot ulcer Vitamin D deficiency Osteomyelitis of right foot GERD (gastroesophageal reflux disease) Anxiety Renal calculi Eosinophilic esophagitis Surgical History History of tubal ligation History of surgery History of back surgery Family History Mother Diabetes High blood pressure Stroke Father High cholesterol Stroke Maternal Grandmother Myocardial infarct Paternal Uncle Brain cancer Colon cancer Other Mental health disorder Social History Housing: Apartment Alcohol intake: current Alcohol intake frequency: a few times a month Alcohol type: wine Patient Tobacco Use Status: Never used Tobacco e-Cigarette/Vaping Use: Never Used Second Hand Smoke Exposure: No Substance Use Type: Marijuana service: No Current occupational status: disabled Cognitive needs: No Hearing needs: No Vision needs: No Questionnaire Thrive Questionnaire Date Thrive assessed: 05/20/24 I am a: Patient What is your living situation today?: I have a steady place to live Within the past 12 months, did the food you bought not last and you didn't have the money to get more?: Never true Within the past 12 months, did you worry whether your food would run out before you got money to buy more?: Never true Do you have trouble paying for medicines?: No Do you have trouble getting transportation to medical appointments?: No Do you have trouble paying your heating and electricity bill?: No Do you have trouble taking care of your child, family member or friend?: No Do you have trouble with day-to-day activities such as bathing, preparing meals, shopping, managing finances, etc.?: No Are you currently unemployed and looking for a job?: No Are you interested in more education?: No Please select the resources that you would like help with: None Currently or been in a relationship where the following occur: No concerns reported THRIVE Score: 0 AUDIT C Alcohol Use Questionnaire (AUDIT-C) 1. How often do you have a drink containing alcohol?: Never 3. How often do you have six or more drinks on one occasion?: Never Total Score: 0 HAI-7 AMB Questionnaire HAI-7 Date HAI - 7 assessed: 05/20/24 Feeling nervous, anxious, or on edge: 1 = Several days Not being able to stop or control worryin = Not at all Worrying too much about different things: 1 = Several days Trouble relaxin = Not at all Being so restless that it is hard to sit still: 0 = Not at all Becoming easily annoyed or irritable: 0 = Not at all Feeling afraid as if something awful might happen: 1 = Several days Total HAI-7 score (0-4 normal; 5-9 mild; 10-14 moderate; 15-21 severe): 3 Source: Developed by Drs. Harman Love, Em Call, Miah Schilling and colleagues, with an educational bill from [employer]. Review of Systems Const Denies body aches, Denies chills, Denies fever(s), Denies headache(s) and Denies poor appetite Eyes Reports no additional complaints ENT Denies dizziness and Denies headache(s) Card Denies chest pain, Denies lightheadedness and Denies dyspnea Resp Denies cough and Denies dyspnea GI Denies vomiting Reports no additional complaints Musc Details: Has been having wrist pain without swelling as well as numbness and tingling in the 1st 3 digits of the left hand. Skin/Breast Reports system reviewed and no additional complaints, except as documented Neuro Denies dizziness, Denies headache(s) and Reports paresthesias (First 3 digits of left hand) Psych Reports no additional complaints Physical exam (Primary Care) Vital Signs: Oxygen Delivery Method Room Air 05/20/24 10:28 BMI result Body Mass Index 29.2 Tobacco/Smoking Status: Tobacco use Status Tobacco use date assessed 03/29/22 09/02/22 17:43 Patient Tobacco Use Status Never used Tobacco 09/02/22 18:03 e-Cigarette/Vaping Use Never Used 09/02/22 18:03 Thrive Assessment: Date of Thrive Assessment Date Thrive assessed 03/29/22 09/02/22 17:43 Currently or been in a relationship where the following occur: No concerns reported Const General: cooperative, healthy appearing, comfortable and no acute distress Orientation/consciousness: patient oriented x3 HENMT Head: Yes normocephalic Ears: hearing grossly normal bilaterally General nose exam: Normal external nose present Eyes General: appearance normal, both eyes and all related structures Conjunctivae: conjunctivae normal Neck Neck: Yes full ROM and Yes no lymphadenopathy Resp Effort & Inspection: normal respiratory effort Auscultation: clear to auscultation bilaterally, no crackles, no rales, no rhonchi and no wheezes Cardio Rate: regular rate Rhythm: regular rhythm Skin General skin exam: no rashes or lesions noted Neuro General: patient oriented x3 Gait exam (Neuro): Normal gait present Extrem Other: Left wrist is tender to palpation. Normal strength, range of motion, and pulses in bilateral extremities. Decreased sensation in the 1st 3 digits of left hand. No snuffbox tenderness. General: Yes normal to inspection and No edema Psych Affect: normal affect Attitude: cooperative Insight: Good insight present (Psych) Judgement: Good judgement present (Psych) Assessment and Plan Assessment & Plan (1) Numbness of left hand: Code(s): R20.0 - Anesthesia of skin Plan: Patient has been having numbness and tingling in the 1st 3 digits as well as discomfort in the base of the palm and wrist. She feels the numbness and tingling has been worsening over the last 2 weeks and is now dropping things with that hand. Numbness is worse in the morning. EMG ordered and advised patient to trial wrist splint at night. She has been using Motrin and Tylenol for pain with good relief. (2) Insomnia: Code(s): G47.00 - Insomnia, unspecified Qualifiers: Insomnia type: primary Qualified Code(s): F51.01 - Primary insomnia Plan: Zolpidem refilled. Plan This note was constructed using voice recognition software. While every effort has been made to ensure accuracy and victorian literature professor, still areas may have been included sometimes these areas may affect the content or meeting of the given symptoms. Total time spent caring for the patient today was 25 minutes. This includes time spent before the visit reviewing the chart, time spent during the visit, and time spent after the visit and documentation. Orders: Orders MM tomosynthesis screening BI Today Z12.31 - Encounter for screening mammogram for malignant neoplasm of breast NE electromyogram (EMG) Today R20.0 - Anesthesia of skin Thyroid Stimulating Hormone Today Z00.00 - Encounter for general adult medical examination without abnormal findings Free T4 (Free Thyroxine) Today Z00.00 - Encounter for general adult medical examination without abnormal findings Lipid Panel Today Z00.00 - Encounter for general adult medical examination without abnormal findings Comprehensive Met. Panel Today Z00.00 - Encounter for general adult medical examination without abnormal findings Complete Blood Count Auto Diff Today Z00.00 - Encounter for general adult medical examination without abnormal findings Referrals Gastroenterology Referral Z00.00 - Encounter for general adult medical examination without abnormal findings Medications: Refilled zolpidem 10 mg PO BEDTIME 30 days PRN 30 tabs 3RF insomnia G47.00 - Insomnia, unspecified zolpidem 10 mg PO BEDTIME 30 days PRN 30 tabs 0RF insomnia G47.00 - Insomnia, unspecified Coding Level of Care Code Est Pt Level 4 (34414) Diagnoses Numbness of left hand R20.0 Primary insomnia F51.01 Insomnia type: primary
[2024-05-20 10:50] VITALS: BP 138/88
== END 2024-05-20 11:04 | disposition home or self-care (01) ==
PROVIDERS: PCP Internal Medicine
DX: R20.0 Anesthesia of skin (principal); F51.01 Primary insomnia
CPT/HCPCS: 99214

== ENCOUNTER 2024-06-23 09:52 | Outpatient (AMB) | payer MEDICARE, SELFPAY ==
[2024-06-23 09:53] VITALS: BP 152/90; PULSE 96; O2SAT 98; BMI 29.2
--- NOTE | 2024-06-23 09:53 | A.OFFPC_ITS ---
Vital Signs 06/23/24 09:53 06/23/24 10:22 Height 4 ft 9 in Weight 135 lb 0.6 oz BMI 29.2 BP 152/90 H 148/88 H Blood Pressure Location Lt brachial Lt brachial Position Sitting Sitting Pulse 96 Pulse Source Pulse Oximeter Pulse Oximetry (%) 98 Oxygen Delivery Method Room Air Intake Visit Reasons: annual exam Intake Note: Patient is here today for a physical. Cytotechnologist/Cytology Supervisor Required: No Allergies milk [Milk] Allergy (Intermediate, Verified 06/23/24 10:08) THROAT SWELLING latex [Latex] Allergy (Mild, Verified 06/23/24 10:08) RASH oxycodone [From Percocet] Allergy (Mild, Verified 06/23/24 10:08) ANXIETY naproxen [From NAPROSYN] Allergy (Unknown, Verified 06/23/24 10:08) NAUSEA & VOMITING, rash ibuprofen [From Motrin] Adverse Reaction (Mild, Verified 06/23/24 10:08) GASTRITIS DAIRY PRODUCTS Allergy (Intermediate, Uncoded 06/23/24 10:08) THROAT CLOSING UP Medication List - Last Reconciled 06/23/24 by Coby Mohan PA-C fluticasone propionate 50 mcg/actuation (Flonase Allergy Relief) 2 sprays intranasal DAILY lorazepam 0.5 mg PO BID PRN 90 days sertraline 25 mg PO DAILY zolpidem 10 mg PO BEDTIME PRN 30 days Tobacco use date assessed: 05/20/24 Dental Screening Dental Screen Date: 06/23/24 Did you have a dental visit in the last 12 months?: No Did you have a dental problem in the last 6 months where you did not have access to dental care?: No HPI annual exam HPI Details 47-year-old female with history of spina bifida limps on walking has a history of GERD with eosinophilic esophagitis, insomnia, overactive bladder and generalized anxiety disorder coming in for annual exam. She regularly follows with eye doctor. She states she has been dealing with family stress and has been unable to complete her left hand EMG for possible carpal tunnel. She does mentioned that now she is having right hand numbness and tingling in the 1st 3 digits in the palm of the hand. She also mentioned she has been having bladder leakage which is typical for her and she sees Urology for routine injections and is due for 1. Lastly she mentions she has been having vaginal bleeding on 2 separate occasions that was not associated with intercourse. She is concerned because she does not have a uterus and is unsure with the bleeding is coming from. The bleeding is not associated with pain or any other symptoms and appears to happen randomly. [facility] Medical History Osteoporosis Gestational diabetes Uterine prolapse Iron deficiency anemia Spina bifida Overactive bladder Cystocele Right foot ulcer Vitamin D deficiency Osteomyelitis of right foot GERD (gastroesophageal reflux disease) Anxiety Renal calculi Eosinophilic esophagitis Surgical History History of tubal ligation History of surgery History of back surgery Family History Mother Diabetes High blood pressure Stroke Father High cholesterol Stroke Maternal Grandmother Myocardial infarct Paternal Uncle Brain cancer Colon cancer Other Mental health disorder Social History Housing: Apartment Alcohol intake: current Alcohol intake frequency: a few times a month Alcohol type: wine Patient Tobacco Use Status: Never used Tobacco e-Cigarette/Vaping Use: Never Used Second Hand Smoke Exposure: No Substance Use Type: Marijuana service: No Current occupational status: disabled Cognitive needs: No Hearing needs: No Vision needs: No Questionnaire PHQ-9 Over the last 2 weeks, how often have you been bothered by any of the following problems? 1. Little interest or pleasure in doing things: several days 2. Feeling down, depressed, or hopeless: several days 3. Trouble falling or staying asleep, or sleeping too much: more than half the days 4. Feeling tired or having little energy: several days 5. Poor appetite or overeating: several days 6. Feeling bad about yourself - or that you are a failure or have let yourself or your family down: several days 7. Trouble concentrating on things, such as reading the newspaper or watching television: not at all 8. Moving or speaking so slowly that other people could have noticed. Or the opposite - being so fidgety or restless that you have been moving around a lot more than usual: not at all 9. Thoughts that you would be better off or of hurting yourself in some way: not at all Total score: 7 Depression Screening Interpretation: Positive Depression Screening Follow-up: In treatment Depression Screening Done: Yes Source: Developed by Drs. Harman Love, Em Call, Miah Schilling and colleagues, with an educational bill from [employer]. Thrive Questionnaire Date Thrive assessed: 05/20/24 I am a: Patient What is your living situation today?: I have a steady place to live Within the past 12 months, did the food you bought not last and you didn't have the money to get more?: I choose not to answer this question Within the past 12 months, did you worry whether your food would run out before you got money to buy more?: I choose not to answer this question Do you have trouble paying for medicines?: No Do you have trouble getting transportation to medical appointments?: No Do you have trouble paying your heating and electricity bill?: No Do you have trouble taking care of your child, family member or friend?: No Do you have trouble with day-to-day activities such as bathing, preparing meals, shopping, managing finances, etc.?: No Are you currently unemployed and looking for a job?: No Are you interested in more education?: No Please select the resources that you would like help with: None Currently or been in a relationship where the following occur: No concerns reported THRIVE Score: 0 AUDIT C Alcohol Use Questionnaire (AUDIT-C) 1. How often do you have a drink containing alcohol?: Never 3. How often do you have six or more drinks on one occasion?: Never Total Score: 0 HAI-7 AMB Questionnaire HAI-7 Date HAI - 7 assessed: 05/20/24 Feeling nervous, anxious, or on edge: 1 = Several days Not being able to stop or control worryin = Several days Worrying too much about different things: 1 = Several days Trouble relaxin = Several days Being so restless that it is hard to sit still: 1 = Several days Becoming easily annoyed or irritable: 1 = Several days Feeling afraid as if something awful might happen: 1 = Several days Total HAI-7 score (0-4 normal; 5-9 mild; 10-14 moderate; 15-21 severe): 7 Source: Developed by Drs. Harman Love, Em Call, Miah Schilling and colleagues, with an educational bill from [employer]. HAI-7 Assessment Billing HAI-7 Assessment Tool: HAI-7 Assessment 36702 Review of Systems Const Denies body aches, Denies fatigue, Denies fever(s), Denies frequent falls, Denies headache(s) and Denies weakness Eyes Reports no additional complaints and Denies change in vision ENT Denies dysphagia, Denies dizziness, Denies facial pain, Denies headache(s), Denies nasal congestion and Denies odynophagia Card Denies chest pain, Denies syncope, Denies irregular heart rhythm, Denies leg edema, Denies lightheadedness and Denies dyspnea Resp Denies cough and Denies dyspnea GI Reports constipation, Denies dysphagia, Denies dyspepsia, Denies diarrhea, Denies nausea, Denies odynophagia and Denies vomiting Reports abnormal vaginal bleeding, Denies urinary frequency, Denies dysuria, Reports urinary incontinence (Stress), Denies urinary hesitancy and Denies urinary urgency Musc Reports as per HPI, Reports back pain (Chronic ) and Denies myalgias Skin/Breast Reports system reviewed and no additional complaints, except as documented Neuro Details: Numbness and tingling in bilateral hands Denies dizziness, Denies syncope, Denies frequent falls, Denies headache(s) and Denies weakness Psych Reports no additional complaints Endo Denies fatigue Physical exam (Primary Care) Vital Signs: Last Vital Signs Pulse 96 06/23/24 09:53 BP 148/88 H 06/23/24 10:22 Pulse Ox 98 06/23/24 09:53 Oxygen Delivery Method Room Air 06/23/24 09:53 BMI result Body Mass Index 29.2 Tobacco/Smoking Status: Tobacco use Status Tobacco use date assessed 05/20/24 06/23/24 09:55 Patient Tobacco Use Status Never used Tobacco 06/23/24 09:55 e-Cigarette/Vaping Use Never Used 06/23/24 09:55 PHQ-9: PHQ-9 Score PHQ-9: Total score 7 06/23/24 10:05 Depression Screening Interpretation: Positive Depression Screening Follow-up: In treatment Thrive Assessment: Date of Thrive Assessment Date Thrive assessed 05/20/24 06/23/24 09:55 Currently or been in a relationship where the following occur: No concerns reported Const General: cooperative, healthy appearing, comfortable and no acute distress Orientation/consciousness: patient oriented x3 HENMT Head: Yes normocephalic Ears: hearing grossly normal bilaterally, external ears normal, TM's normal bilaterally and EAC's normal General nose exam: Normal external nose present Face and sinus: Yes normal facial exam and Yes sinuses nontender Mouth: Normal oral and palatal mucosa present and tongue normal Throat: Yes posterior oropharynx normal Eyes General: appearance normal, both eyes and all related structures Conjunctivae: conjunctivae normal Pupils: Equal, round and reactive pupils present EOM: EOMs intact bilaterally and No Nystagmus present Neck Neck: Yes normal visual inspection, Yes full ROM and Yes no lymphadenopathy Chest Chest palpation & inspection: normal inspection of the chest Resp Effort & Inspection: normal respiratory effort Auscultation: clear to auscultation bilaterally, no crackles, no rales, no rhonchi, no wheezes and breath sounds present Cardio Rate: regular rate Rhythm: regular rhythm Peripheral pulses: radial pulses present and dorsalis pedis present GI Inspection: Yes normal to inspection and No Abdominal wall edema Palpation (GI): Soft to palpation, not firm and nontender Auscultation: normal bowel sounds Rectal Exam - Female: deferred General: Yes no CVA tenderness Back/Spine/Pelvis Back: no CVA tenderness Skin General skin exam: no rashes or lesions noted Neuro General: patient oriented x3 Cranial nerves: Yes Equal, round and reactive pupils present, Yes Midline tongue present, Yes Ability to bilaterally elevate shoulders present and No Nystagmus present Gait exam (Neuro): Normal gait present Extrem General: Yes normal to inspection, Yes full ROM, No no pedal edema and No edema Psych Speech and movement: Normal speech and movement present Affect: normal affect Insight: Good insight present (Psych) Judgement: Good judgement present (Psych) Assessment and Plan Assessment & Plan (1) Generalized anxiety disorder: Comment: counselling Christina Every 2 weeks ( 07/2021) [facility] Code(s): F41.1 - Generalized anxiety disorder Plan: Continue on sertraline and lorazepam as needed. Mentions her anxiety has been increased due to family stress. (2) GERD (gastroesophageal reflux disease): Code(s): K21.9 - Gastro-esophageal reflux disease without esophagitis Qualifiers: Esophagitis presence: without esophagitis Qualified Code(s): K21.9 - Gastro-esophageal reflux disease without esophagitis Plan: Avoid trigger foods such as citrus, tomato products, soda, caffeine, spicy foods and other foods that may be irritating to your stomach. Avoid laying flat 3-4 hours after eating and elevate the head of the bed 30 degrees to prevent acid from moving into the esophagus. (3) Vaginal bleeding: Code(s): N93.9 - Abnormal uterine and vaginal bleeding, unspecified Plan: Patient has had 2 separate episodes of abnormal vaginal bleeding with no identifiable trigger. Patient does not have a uterus but does mentioned she still has her ovaries. It is not associated with intercourse or pelvic pain. The last episode was 2 weeks ago. We will order for transvaginal ultrasound and refer to gynecology for further investigation. (4) Numbness in both hands: Code(s): R20.0 - Anesthesia of skin Plan: New referral placed for bilateral EMG to evaluate for possible carpal tunnel. Advised patient to wear night splints in the meantime. (5) Annual physical exam: Code(s): Z00.00 - Encounter for general adult medical examination without abnormal findin gs Plan: Patient is up-to-date on all routine screenings and vaccinations for her age. Routine blood work ordered but not completed yet. We will follow up in 3 months. (6) Insomnia: Code(s): G47.00 - Insomnia, unspecified Qualifiers: Insomnia type: primary Qualified Code(s): F51.01 - Primary insomnia Plan: Continue on zolpidem as needed. (7) Elevated blood pressure reading in office without diagnosis of hypertension: Code(s): R03.0 - Elevated blood-pressure reading, without diagnosis of hypertension Plan: Patient's blood pressure was elevated in the office today even when retaken. She does mentioned her blood pressure has been increased due to her life stressors. We will follow up in 3 months for repeat evaluation. Advised patient that if her blood pressure continues to be elevated we may need to consider medication. Avoid salt intake and encourage healthy diet and regular exercise. (8) Overactive bladder: Code(s): N32.81 - Overactive bladder Plan: Continue to follow with Urology for injections. Plan This note was constructed using voice recognition software. While every effort has been made to ensure accuracy and watch train inspector, still areas may have been included sometimes these areas may affect the content or meeting of the given symptoms. Total time spent caring for the patient today was 30 minutes. This includes time spent before the visit reviewing the chart, time spent during the visit, and time spent after the visit and documentation. Orders: Orders US transvaginal Today N93.9 - Abnormal uterine and vaginal bleeding, unspecified Referrals BUNDLE TIER AND LABELER Referral N93.9 - Abnormal uterine and vaginal bleeding, unspecified, Z00.00 - Encounter for general adult medical examination without abnormal findings Coding Level of Care Code Est Pt Prev Care 40-64y(81989) Diagnoses Generalized anxiety disorder F41.1 Gastroesophageal reflux disease without esophagitis K21.9 Esophagitis presence: without esophagitis Vaginal bleeding N93.9 Numbness in both hands R20.0 Annual physical exam Z00.00 Primary insomnia F51.01 Insomnia type: primary Elevated blood pressure reading in office without diagnosis of hypertension R03.0 Overactive bladder N32.81 Additional Codes HAI-7 Assessment Billing - HAI-7 Assessment Tool: HAI-7 Assessment 74212 ([id number])
[2024-06-23 10:22] VITALS: BP 148/88
== END 2024-06-23 10:28 | disposition home or self-care (01) ==
PROVIDERS: PCP Internal Medicine
DX: R03.0 Elevated blood-pressure reading, without diagnosis of hypertension (principal); F41.1 Generalized anxiety disorder; N93.9 Abnormal uterine and vaginal bleeding, unspecified; R20.0 Anesthesia of skin; K21.9 Gastro-esophageal reflux disease without esophagitis; F51.01 Primary insomnia; N32.81 Overactive bladder
CPT/HCPCS: 99214

== ENCOUNTER 2024-12-22 14:49 | Outpatient (AMB) | payer MEDICARE, MEDICAID, SELFPAY ==
--- NOTE | 2024-12-22 14:59 | A.OFFVIS_ITS ---
Intake Visit Reasons: AUB Allergies milk [Milk] Allergy (Intermediate, Verified 12/22/24 15:09) THROAT SWELLING latex [Latex] Allergy (Mild, Verified 12/22/24 15:09) RASH oxycodone [From Percocet] Allergy (Mild, Verified 12/22/24 15:09) ANXIETY naproxen [From NAPROSYN] Allergy (Unknown, Verified 12/22/24 15:09) NAUSEA & VOMITING, rash ibuprofen [From Motrin] Adverse Reaction (Mild, Verified 12/22/24 15:09) GASTRITIS DAIRY PRODUCTS Allergy (Intermediate, Uncoded 06/23/24 10:08) THROAT CLOSING UP HPI Comments Details: Presenting complaining of an episode of vaginal bleeding after intercourse with a associated pelvic pain. The patient is status post hysterectomy in 2018 secondary to what sounds like uterine inversion followed by hemorrhage, since then the patient has been doing well with no complaints no vaginal bleeding or postcoital bleeding. No history of abnormal Pap smear. No records available [facility] Medical History Tachycardia Annual physical exam Palpitations Breast cancer screening by mammogram Left breast mass Colon cancer screening Numbness of left hand Numbness of right hand Osteoporosis Gestational diabetes Uterine prolapse Iron deficiency anemia Spina bifida Overactive bladder Cystocele Right foot ulcer Vitamin D deficiency Osteomyelitis of right foot GERD (gastroesophageal reflux disease) Anxiety Renal calculi Eosinophilic esophagitis Surgical History H/O: hysterectomy History of tubal ligation History of surgery History of back surgery Family History Mother Diabetes High blood pressure Stroke Father High cholesterol Stroke Maternal Grandmother Myocardial infarct Paternal Uncle Brain cancer Colon cancer Other Mental health disorder Social History Housing: Apartment Alcohol intake: current Alcohol intake frequency: a few times a month Alcohol type: wine Patient Tobacco Use Status: Never used Tobacco e-Cigarette/Vaping Use: Never Used Second Hand Smoke Exposure: No Substance Use Type: Marijuana service: No Current occupational status: disabled Cognitive needs: No Hearing needs: No Vision needs: No Female Reproductive History Menstrual Age of Menarche: 12 Total pregnancies: 3 Full term: 3 Review of Systems Const All systems reviewed & are unremarkable except as noted in HPI and below Card Reports as per HPI and Reports no additional complaints Resp Reports as per HPI and Reports no additional complaints GI Reports as per HPI and Reports no additional complaints Reports as per HPI Physical Exam Const General: cooperative, healthy appearing and comfortable General: Yes bladder normal to palpation External Female Exam: No lesion Speculum Exam - Vagina: normal appearance of the vagina, normal vaginal discharge, not erythematous and other (No masses, granulation tissue, prolapsed fallopian tube or bleeding) Speculum Exam - Cervix: Cervix absent Bimanual exam- vagina & uterus: bladder normal to palpation and uterus absent Bimanual Exam- Adnexa, other: Other (No masses detected) Assessment & Plan Assessment & Plan (1) Vaginal bleeding: Code(s): N93.9 - Abnormal uterine and vaginal bleeding, unspecified Category: Medical Plan: Discussed with the patient possible cause of vaginal bleeding post hysterectomy including but not limited to vaginal disorder including masses dysplasia or cancer, granulation to the tissue, prolapse fallopian tube, vaginal abrasion from traumatic intercourse or other. Given the normal pelvic exam, no more bleeding last 3 weeks even with multiple episodes of intercourse, will order pelvic ultrasound and re-evaluate in 2 weeks for repeat pelvic exam/annual exam (2) Pelvic pain: Code(s): R10.2 - Pelvic and perineal pain Category: Medical Plan: Will order pelvic ultrasound. Instructions given the patient to schedule an ultrasound follow-up appointment in 2 weeks (3) Microscopic hematuria: Code(s): R31.29 - Other microscopic hematuria Category: Medical Plan: Urine dip showed microscopic hematuria, urine culture sent. Will repeat urine dip in 2 weeks. Discussed with the patient the possible causes of microscopic hematuria including but not limited to: interstitial cystitis, polyps, stones, masses, urethral inflammatory processes and others. If Urine Culture is negative and repeat urine dip in 2 weeks shows persistent microscopic hematuria, will proceed with CT abdomen/pelvis and urology referral. Instructions given the patient to schedule a 2 week urine dip follow-up appointment. All questions answered and the patient verbalized understanding. Coding Level of Care Code New Pt Level 3 (85201) Diagnoses Vaginal bleeding N93.9 Pelvic pain R10.2 Microscopic hematuria R31.29
== END 2024-12-22 15:42 | disposition home or self-care (01) ==
PROVIDERS: PCP Internal Medicine; Visit Provider Obstetrics & Gynecology
DX: N93.9 Abnormal uterine and vaginal bleeding, unspecified (principal); R10.2 Pelvic and perineal pain; R31.29 Other microscopic hematuria
CPT/HCPCS: 99203

== ENCOUNTER 2024-12-22 14:49 | Outpatient (REF) | payer OTHER, SELFPAY | END 2024-12-22 14:50 | disposition home or self-care (01) | LOC: HO.LNP 14:49 | PROVIDERS: PCP Internal Medicine; Visit Provider Obstetrics & Gynecology | DX: R31.29 Other microscopic hematuria (principal); N93.9 Abnormal uterine and vaginal bleeding, unspecified; R10.2 Pelvic and perineal pain; Z98.51 Tubal ligation status | CPT/HCPCS: 87086; 87088; 87186; 99202 ==